=== PATIENT | female | born 1955 | race Caucasian/White ===

== ENCOUNTER 2025-03-11 09:12 | Inpatient (IN) | payer MEDICARE, MEDICAID, SELFPAY ==
[2025-03-11] VITALS (12 sets, daily range): BP systolic 69–185; BP diastolic 32–81; PULSE 71–130; RESP 12–18; TEMP 36.3–36.4; O2SAT 92–100; BMI 26.3
--- NOTE | ~2025-03-11 | CT_ITS ---
CLINICAL HISTORY: fall, head strike CT head without contrast Comparison: None provided Findings: Mild bilateral periventricular hypodensities are present. Remote lacunar infarct is seen in the right basal ganglia. There is no evidence of hemorrhage, mass, mass effect, or hydrocephalus. The visualized paranasal sinuses and mastoid air cells are normal. The orbits are within normal limits. There is no acute fracture. IMPRESSION: 1. No acute intracranial findings. 2. Mild chronic microvascular ischemic disease. This document has been electronically signed by: Finn Kinney on 03/11/2025 11:48:09
--- NOTE | ~2025-03-11 | XR_ITS ---
CLINICAL HISTORY: cough, difficulty breathing 1 view chest x-ray Comparison: None provided Findings: The lungs are clear. Heart size is normal. No acute fracture. IMPRESSION: No acute cardiopulmonary abnormality. This document has been electronically signed by: Finn Kinney on 03/11/2025 10:26:40
--- NOTE | ~2025-03-11 | CT_ITS ---
CLINICAL HISTORY: SOB, syncope, concern for DVT CT ANGIOGRAPHY CHEST WITH CONTRAST. 3D POSTPROCESSING. Comparison: None provided Findings: The heart is normal size. RV/LV ratio is normal. No thoracic aortic aneurysm or dissection. No pulmonary artery filling defects. Nonspecific diffuse wall thickening in the esophagus. No thyromegaly or lymphadenopathy. Tiny right pleural effusion with adjacent atelectasis. No consolidation, pulmonary mass or suspicious pulmonary nodule. No pneumothorax. Cholecystectomy. There is a 2.7 x 3.3 cm left adrenal mass. Mild superior endplate compression deformity in T6 with no significant bony retropulsion. IMPRESSION: 1. No pulmonary embolus. 2. Tiny right pleural effusion with adjacent atelectasis. 3. Diffuse wall thickening in the esophagus is nonspecific but can be seen with esophagitis. 4. 3.3 cm left adrenal mass is technically indeterminate. 5. Age-indeterminate mild T6 compression fracture with overall chronic appearance. This document has been electronically signed by: Jessica Johnson DO on 03/11/2025 14:06:07
--- NOTE | ~2025-03-11 | CT_ITS ---
CLINICAL HISTORY: fall, head strike CT cervical spine without contrast Comparison: None provided Findings: Mild multilevel marginal osteophyte formation is present. Multilevel facet arthropathy is also noted. Vertebral body heights are well-maintained. No acute fracture or subluxation is identified. There is straightening of the cervical spine. There is no canal stenosis. The thyroid gland appears normal. The lung apices are clear. IMPRESSION: 1. No acute osseous abnormality is identified. 2. Mild degenerative changes in the cervical spine. This document has been electronically signed by: Finn Kinney on 03/11/2025 11:54:47
--- NOTE | 2025-03-11 09:15 | ED_ITS ---
HPI - General Adult General Chief complaint: Fall Stated complaint: FALL IN SHOWER Time Seen by Provider: 03/11/25 09:15 Source: patient and EMS Mode of arrival: EMS Limitations: altered mental status (patient only alert to herself) History of Present Illness ED Provider: Lary Stauffer PA-C HPI narrative: Patient is a 69 year old assigned female at with a history of schizoaffective disorder, mild neuorcognitive disorder with behavioral disturbance, PTSD, lumbar degenerative disc disease, lymphedema, DM, bipolar disorder, delusional disorder, borderline personality disorder, RLS, HTN, asthma, GERD, amnesia, and failure to thrive presenting to the emergency department today after a fall. EMS states that the patient told them she was having some trouble breathing but has no complaints otherwise however, she is only oriented to herself. [facility] staff states that the patient fell in the shower and struck her head. Note: I spoke with the patient's guardian who verbalized agreement with treatment of the patient and hospital admission if required. Related Data Home Medications ?Medication ?Instructions ?Recorded ?Confirmed acetaminophen 325 mg tablet 650 mg PO Q6H PRN PAIN/TEM P>101 03/11/25 03/11/25 atorvastatin 40 mg tablet 40 mg PO BEDTIME 03/11/25 Allergies Allergy/AdvReac Type Severity Reaction Status Date / Time Unable to Assess Allergy Verified 03/11/25 09:27 Review of Systems 2 Review of Systems: Yes Unobtainable due to mental status (patient only oriented to herself) Constitutional: Constitutional: Reports as per HPI Eyes: Eyes: Reports as per HPI ENT: Reports as per HPI Cardiovascular: Cardiovascular: Reports as per HPI Respiratory: Respiratory: Reports as per HPI Gastrointestinal: Gastrointestinal: Reports as per HPI Genitourinary: Genitourinary: Reports as per HPI Musculoskeletal: Musculoskeletal: Reports as per HPI Integumentary/Breasts: Skin/Breast: Reports as per HPI Neurologic: Reports as per HPI Psychiatric: Psychiatric: Reports as per HPI Endocrine: Endocrine: Reports as per HPI Hematologic/Lymphatic: Hematologic/Lymphatic: Reports as per HPI Allergic/Immunologic: Allergic/Immunologic: Reports as per HPI [facility] Past Medical History Attestation statement: The following information was validated with the patient. Source: old records reviewed, nursing notes reviewed and other ([facility] documentation) Social History Social History Unable to assess alcohol history related to: Unknown Use of substances other than those prescribed or required for medical reasons: Unable to respond Advance Directives: Yes Advance Directives Information Provided: No Advance Directives on File: No Physical Exam ED Vital Signs: Vital Signs - 24 hr 03/11/25 09:27 03/11/25 10:16 03/11/25 10:32 Temperature 97.5 F Pulse Rate 93 72 77 Respiratory Rate 17 14 12 Blood Pressure 69/32 L 106/36 L 130/46 L Pulse Oximetry 95 95 92 Oxygen Delivery Method Room Air Room Air Oxygen Flow Rate 03/11/25 11:07 03/11/25 11:57 03/11/25 13:36 Temperature 97.4 F Pulse Rate 73 75 73 Respiratory Rate 13 12 14 Blood Pressure 148/56 H 177/74 H 185/80 H Pulse Oximetry 98 100 100 Oxygen Delivery Method Room Air Nasal Cannula Nasal Cannula Oxygen Flow Rate 2 3 03/11/25 14:00 Temperature Pulse Rate 82 Respiratory Rate 12 Blood Pressure 185/81 H Pulse Oximetry 100 Oxygen Delivery Method Nasal Cannula Oxygen Flow Rate 3 BMI result Body Mass Index 26.3 Const General: cooperative, alert and awake Nutritional Appearance: well nourished Orientation/consciousness: oriented to person Limitations: altered mental status HENMT Other: small abrasion to the posterior scalp - no gaping areas or active bleeding Ears: hearing grossly normal bilaterally and external ears normal General nose exam: Normal external nose present, no nasal discharge noted and no epistaxis Face and sinus: Yes normal facial exam, No abrasion and No laceration Mouth: Normal oral and palatal mucosa present, no drooling and no muffled voice Eyes General: appearance normal, both eyes and all related structures Periorbital: periorbital findings normal Eyelids: Yes eyelids normal Conjunctivae: conjunctivae normal Pupils: Equal, round and reactive pupils present EOM: EOMs intact bilaterally Neck Neck: Yes normal visual inspection and Yes full ROM Resp Effort & Inspection: normal respiratory effort and able to speak in complete sentences Neuro General: oriented to person, moves all extremities and CN's II-XI intact bilaterally Cranial nerves: Yes Equal, round and reactive pupils present Extrem General: Yes normal to inspection, Yes full ROM and Yes capillary refill normal Psych Appearance: grossly normal Mental Status: mental status grossly normal Medications Administered Discontinued Medications Generic Name Dose Route Start Last Admin Trade Name Juan Carlos PRN Reason Stop Dose Admin Lactated Ringer's 1,000 mls @ 999 mls/hr 03/11/25 10:00 03/11/25 11:10 Lr IV 03/11/25 11:00 Infused .Q1H1M JACQUI Infusion Lactated Ringer's 1,000 mls @ 999 mls/hr 03/11/25 10:00 03/11/25 11:20 Lr IV 03/11/25 11:00 Infused .Q1H1M JACQUI Infusion Iohexol 100 ml 03/11/25 12:04 03/11/25 12:05 Iohexol 350 Mg/Ml 100 Ml Infus..Btl IV 03/11/25 12:05 65 ml ONCE ONE Administration Procedures Ultrasound ED POC Ultrasound: Ultrasound was performed for hypotensive patient Views were parasternal long, parasternal short, 4 chamber and subxiphoid views There was no pericardial effusion, no RV strain, she has good cardiac squeeze IVC was fully collapsed, impression is hypovolemia without pericardial effusion or RV strain Performed by Konrad Lucero Medical Decision Making Medical Decision Making MDM Narrative: Patient is a 69 year old assigned female at with a history of schizoaffective disorder, mild neuorcognitive disorder with behavioral disturbance, PTSD, lumbar degenerative disc disease, lymphedema, DM, bipolar disorder, delusional disorder, borderline personality disorder, RLS, HTN, asthma, GERD, amnesia, and failure to thrive presenting to the emergency department today after a fall. Patient's physical exam was as noted in the physical exam portion of this note. Patient oriented to herself and answers some questions appropriately. Patient's blood work showed an elevated CR consistent with an SARIAH. Patient's chest x-ray showed no acute process. Patient's CT head and c-spine showed no acute process. Patient was profoundly hypotensive when she arrived in the department. Bed side echocardiogram performed by my attending physician, Dr. Arenas, who noted a very flat IVC. Patient was given 2 liters of LR and her blood pressure normalized. Patient was mentating per her baseline throughout her episode of hypotension. Patient did become hypoxic at some point during her time in the emergency department, requiring oxygen via nasal cannula. Patient's CT PE study was negative. I spoke with the hospitalist team who agreed to admission for SARIAH and hypoixa. Patient's clinical presentation is NOT consistent with sepsis (@1500). I explained my physical exam findings as well as all test results to the patient. I answered all questions asked by the patient. Patient admitted. Differential Diagnosis Differential Diagnoses: The differential diagnosis associated with the presentation includes Hypoxia Hypotension Dehydration SARIAH Syncope Fall Admission/Observation Consideration of admission/observation: Escalation of care including admission/observation considered Patient admitted as noted in the MDM Rationale portion of this note. Consult Healthcare Provider Management of the patient was discussed with: Hospitalist (agreed to admission as noted in the MDM Rationale portion of this note. ) Lab Data [facility] Lab Attestation statement: I reviewed the patient's lab results. My interpretation of these results are in the MDM Rationale portion of this note. 03/11/25 09:51 03/11/25 09:51 Labs: Lab Results 03/11/25 03/11/25 Range/Units 09:51 14:05 WBC 9.8 (4.8-10.8) X10*3/uL RBC 4.77 (4.20-5.50) X10*6/uL Hgb 13.5 (12.0-16.0) g/dl Hct 41.9 (37.0-47.0) % MCV 87.8 (80.0-98.0) fL MCH 28.3 (27.0-33.0) pg MCHC 32.2 (31.0-35.0) g/dl RDW 13.0 (11.0-16.0) % Plt Count 281 (160-400) X10*3/uL MPV 10.0 (9.4-12.3) fL Immature Gran % (Auto) 0.4 (0.0-0.4) % Neut % (Auto) 73.3 H (45-73) % Lymph % (Auto) 19.7 L (20-40) % [place] % (Auto) 5.1 (2-11) % Eos % (Auto) 0.9 (0-4) % Baso % (Auto) 0.6 (0-2) % Lymph # (Auto) 1.9 (1.2-4.9) X10*3/uL [place] # (Auto) 0.5 (0.1-1.2) X10*3/uL Eos # (Auto) 0.1 (0.0-0.4) X10*3/uL Baso # (Auto) 0.1 (0.0-0.2) X10*3/uL Abs Immat Gran (auto) 0.04 H (0.00-0.03) X10*3/uL Absolute Neuts (auto) 7.2 (2.0-8.3) x10*3/uL Absolute Nucleated RBC 0.000 (0.0-0.012) X10*3/uL Nucleated RBC % (auto) 0.0 (0.0-0.2) /100WBC VBG pH 7.39 (7.32-7.43) VBG pCO2 45 mmHg VBG pO2 68 mmHg VBG HCO3 27 H (22-26) mmol/L VBG O2 Saturation 92.0 % VBG Base Excess 2.0 mmol/L Sodium 145 (135-145) mmol/L Potassium 3.8 (3.3-5.1) mmol/L Chloride 104 (96-108) mmol/L Carbon Dioxide 19 L (22-29) mmol/L Anion Gap 26 H (12-20) BUN 27 H (9-16) mg/dL Creatinine 1.83 H (0.5-1.4) mg/dL Estim Creat Clear Calc 28.1 Estimated GFR 27 Random Glucose 189 H (60-115) mg/dL Calcium 9.4 (8.4-10.2) mg/dL Total Bilirubin 0.7 (0.0-1.0) mg/dL AST 23 (5-31) U/L ALT < 6 (0-31) U/L Alkaline Phosphatase 111 (39-117) U/L B-Natriuretic Peptide 23 (<100) pg/mL Total Protein 6.8 (6.5-8.0) g/dL Albumin 3.9 (3.5-5.0) g/dL Independent Interpretation I performed an independent interpretation of an: Plain X-Ray and CT Scan Interpretation: My interpretation is in agreement with the radiologist's impression of these imaging studies. L CLINICAL HISTORY: cough, difficulty breathing 1 view chest x-ray Comparison: None provided Findings: The lungs are clear. Heart size is normal. No acute fracture. IMPRESSION: No acute cardiopulmonary abnormality. This document has been electronically signed by: Finn Kinney on 03/11/2025 10:26:40 Dictated By: Finn Kinney MD Signed By: Electronically signed by Finn Kinney MD 03/11/25 1028 Report Number: [id number]: Total DLP = 0.00 mGy-cm CLINICAL HISTORY: fall, head strike CT head without contrast Comparison: None provided Findings: Mild bilateral periventricular hypodensities are present. Remote lacunar infarct is seen in the right basal ganglia. There is no evidence of hemorrhage, mass, mass effect, or hydrocephalus. The visualized paranasal sinuses and mastoid air cells are normal. The orbits are within normal limits. There is no acute fracture. IMPRESSION: 1. No acute intracranial findings. 2. Mild chronic microvascular ischemic disease. This document has been electronically signed by: Finn Kinney on 03/11/2025 11:48:09 Dictated By: Finn Kinney MD Signed By: Electronically signed by Finn Kinney MD 03/11/25 1148 Report Number: [id number]: Total DLP = 1055.00 mGy-cm CLINICAL HISTORY: fall, head strike CT cervical spine without contrast Comparison: None provided Findings: Mild multilevel marginal osteophyte formation is present. Multilevel facet arthropathy is also noted. Vertebral body heights are well-maintained. No acute fracture or subluxation is identified. There is straightening of the cervical spine. There is no canal stenosis. The thyroid gland appears normal. The lung apices are clear. IMPRESSION: 1. No acute osseous abnormality is identified. 2. Mild degenerative changes in the cervical spine. This document has been electronically signed by: Finn Kinney on 03/11/2025 11:54:47 Dictated By: Finn Kinney MD Signed By: Electronically signed by Finn Kinney MD 03/11/25 1156 Report Number: [id number]: Total DLP = 313.00 mGy-cm CLINICAL HISTORY: SOB, syncope, concern for DVT CT ANGIOGRAPHY CHEST WITH CONTRAST. 3D POSTPROCESSING. Comparison: None provided Findings: The heart is normal size. RV/LV ratio is normal. No thoracic aortic aneurysm or dissection. No pulmonary artery filling defects. Nonspecific diffuse wall thickening in the esophagus. No thyromegaly or lymphadenopathy. Tiny right pleural effusion with adjacent atelectasis. No consolidation, pulmonary mass or suspicious pulmonary nodule. No pneumothorax. Cholecystectomy. There is a 2.7 x 3.3 cm left adrenal mass. Mild superior endplate compression deformity in T6 with no significant bony retropulsion. IMPRESSION: 1. No pulmonary embolus. 2. Tiny right pleural effusion with adjacent atelectasis. 3. Diffuse wall thickening in the esophagus is nonspecific but can be seen with esophagitis. 4. 3.3 cm left adrenal mass is technically indeterminate. 5. Age-indeterminate mild T6 compression fracture with overall chronic appearance. This document has been electronically signed by: Jessica Johnson DO on 03/11/2025 14:06:07 Dictated By: Jessica Johnson MD Signed By: Electronically signed by Jessica Johnson MD 03/11/25 1406 Radiology Impression Discussion of test interpretation with radiology: I have reviewed the radiologist's reading. Independent Historian Clinical information obtained from an independent historian. History obtained from or confirmed by: EMS (EMS provided additional history) and Other ([facility] provided additional history.) Critical Care Time Critical Care Time Critical Care Time: Yes Total Critical Care Time: 51 Attestation: I spent 51 minutes of Critical Care Time with this patient. This does not include time spent on separately reported billable procedures. Discharge Plan Discharge Clinical Impression: Hypoxia, Syncope, SARIAH (acute kidney injury) Patient Disposition: Admitted As Inpatient
[2025-03-11 09:56] LABS: MANUAL DIFF FLAG NO
[2025-03-11 09:59] LABS: Hematocrit 41.9 % (37.0-47.0); Hemoglobin 13.5 g/dl (12.0-16.0); Imm Gran Abs Auto 0.04 X10*3/uL (0.00-0.03); Imm Gran Pct Auto 0.4 % (0.0-0.4); Lymphocytes Absolute Auto 1.9 X10*3/uL (1.2-4.9); Mean Corpuscular HGB Conc 32.2 g/dl (31.0-35.0); Mean Corpuscular Hemoglobin 28.3 pg (27.0-33.0); Mean Corpuscular Volume 87.8 fL (80.0-98.0); NRBC Abs Auto 0.000 X10*3/uL (0.0-0.012); NRBC Pct Auto 0.0 /100WBC (0.0-0.2); Platelet Count 281 X10*3/uL (160-400); Red Blood Count 4.77 X10*6/uL (4.20-5.50); White Blood Count 9.8 X10*3/uL (4.8-10.8)
[2025-03-11] MEDS: Lactated Ringers 1,000 ML 999 ML IV ×2 (10:05)
--- OUTSIDE RECORDS SUMMARY | 2025-03-11 10:16 | XMS_ITS | Encounter Summary ---
Author Organization [employer] [facility] Address [address] [place] [address] Care Team Providers Care Schedule Announcer Name Role Phone Delfino Chaudhari MD Primary Care Provider [phone] Encounter Details Date Type Department Care Team (Late st Contact Info) Description 03/08/2025 Lab Requisition [facility] - Main Lab [address] [place] [address] Deflino Chaudhari MD [address] [place] [address] [address] [place] Other continuous churn buttermaker (current) drug therapy; Encounter for other specified special examinations; Other hyperlipidemia Social History Tobacco Use Types Packs/Day Years Used Date Smoking Tobacco: Never Assessed Comments Unknown Sex and Gender Information Value Date Recorded Sex Assigned at Not on file Legal Sex Female 3:40 PM EDT Gender Identity Not on file Sexual Orientation Not on file documented as of this encounter Plan of Treatment Not on file documented as of this encounter Procedures Procedure Name Priority Date/Time Associated Diagnosis Comments LIPID PANEL WITH REFLEX TO DIRECT LDL Routine 03/08/2025 6:58 AM EDT Other continuous churn buttermaker (current) drug therapy Encounter for other specified special examinations Other hyperlipidemia CBC WITH AUTO DIFFERENTIAL Routine 03/08/2025 6:58 AM EDT Other care home (current) drug therapy Encounter for other specified special examinations Other hyperlipidemia CBC AND DIFFERENTIAL Routine 03/08/2025 6:58 AM EDT Other care home (current) drug therapy Encounter for other specified special examinations Other hyperlipidemia THYROID STIMULATING HORMONE Routine 03/08/2025 6:58 AM EDT Other care home (current) drug therapy Encounter for other specified special examinations Other hyperlipidemia COMPREHENSIVE METABOLIC PANEL Routine 03/08/2025 6:58 AM EDT Other care home (current) drug therapy Encounter for other specified special examinations Other hyperlipidemia documented in this encounter Results * (ABNORMAL) CBC auto differential (03/08/2025 6:58 AM EDT) WBC 5.7 4.8 - 10.8 K/mcL LAB HEMETOLOGY METHOD 03/08/2025 8:03 AM [facility] RBC 4.40 3.80 - 4.80 M/mcL LAB HEMETOLOGY METHOD 03/08/2025 8:03 AM [facility] Hemoglobin 12.1 11.5 - 16.0 g/dL LAB HEMETOLOGY METHOD 03/08/2025 8:03 AM [facility] Hematocrit 38.1 35.0 - 47.0 % LAB HEMETOLOGY METHOD 03/08/2025 8:03 AM [facility] MCV 87.6 79.0 - 98.0 FL LAB HEMETOLOGY METHOD 03/08/2025 8:03 AM [facility] MCH 27.8 27.0 - 32.0 pcg LAB HEMETOLOGY METHOD 03/08/2025 8:03 AM [facility] MCHC 31.8(L) 32.0 - 37.0 g/dL LAB HEMETOLOGY METHOD 03/08/2025 8:03 AM [facility] RDW 12.8 11.0 - 15.0 % LAB HEMETOLOGY METHOD 03/08/2025 8:03 AM [facility] Platelets 241 130 - 400 K/mcL LAB HEMETOLOGY METHOD 03/08/2025 8:03 AM [facility] MPV 10.6 7.0 - 11.0 FL LAB HEMETOLOGY METHOD 03/08/2025 8:03 AM [facility] NRBC 0.0 <1.0 % LAB HEMETOLOGY METHOD 03/08/2025 8:03 AM [facility] NRBC Absolute 0.00 <0.10 K/mcL LAB HEMETOLOGY METHOD 03/08/2025 8:03 AM [facility] Neutrophils Relative 51.6 % LAB HEMETOLOGY METHOD 03/08/2025 8:03 AM [facility] Lymphocytes Relative 38.6 % LAB HEMETOLOGY METHOD 03/08/2025 8:03 AM [facility] Monocytes Relative 7.2 % LAB HEMETOLOGY METHOD 03/08/2025 8:03 AM [facility] Eosinophils Relative 1.4 % LAB HEMETOLOGY METHOD 03/08/2025 8:03 AM [facility] Basophils Relative 0.9 % LAB HEMETOLOGY METHOD 03/08/2025 8:03 AM [facility] Immature Granulocytes Relative 0.3 % LAB HEMETOLOGY METHOD 03/08/2025 8:03 AM [facility] Neutrophils Absolute 2.96 1.50 - 7.00 K/mcL LAB HEMETOLOGY METHOD 03/08/2025 8:03 AM [facility] Lymphocytes Absolute 2.21 1.00 - 5.00 K/mcL LAB HEMETOLOGY METHOD 03/08/2025 8:03 AM [facility] Monocytes Absolute 0.41 0.20 - 1.00 K/mcL LAB HEMETOLOGY METHOD 03/08/2025 8:03 AM [facility] Eosinophils Absolute 0.08 0.00 - 0.50 K/mcL LAB HEMETOLOGY METHOD 03/08/2025 8:03 AM [facility] Basophils Absolute 0.05 0.00 - 0.20 K/mcL LAB HEMETOLOGY METHOD 03/08/2025 8:03 AM [facility] Immature Granulocytes Absolute 0.02 0.00 - 0.03 K/mcL LAB HEMETOLOGY METHOD 03/08/2025 8:03 AM EDT [facility] Blood Venous blood specimen / Unknown 03/08/2025 6:58 AM EDT 03/08/2025 7:33 AM EDT us Delfino Chaudhari MD LAB BLOOD ORDERABLES Final Resul t Performing Organization Address City/[facility]/ZIP Co de Phone Number [facility] [address] [place] [address], [place] [phone] * Thyroid stimulating hormone (03/08/2025 6:58 AM EDT) [facility] TSH 1.57 0.40 - 4.00 mcIU/mL LAB CHEMISTRY METHOD 03/08/2025 11:24 AM EDT [facility] Blood Venous blood specimen / Unknown 03/08/2025 6:58 AM EDT 03/08/2025 7:33 AM EDT us Delfino Chaudhari MD LAB BLOOD ORDERABLES Final Resul t Performing Organization Address [facility] Co de Phone Number [facility] [address] [place] [address], [place] [phone] * Lipid panel with reflex to direct LDL (03/08/2025 6:58 AM EDT) [facility] Cholesterol 163 0 - 200 mg/dL LAB CHEMISTRY METHOD 03/08/2025 8:21 AM EDT [facility] Triglycerides 59 0 - 150 mg/dL LAB CHEMISTRY METHOD 03/08/2025 8:21 AM EDT [facility] HDL 71 >=40 mg/dL LAB CHEMISTRY METHOD 03/08/2025 8:21 AM EDT [facility] LDL Calculated 80 0 - 100 mg/dL LAB CHEMISTRY METHOD 03/08/2025 8:21 AM EDT [facility] Comment:Estimated LDL Calcul ated using equation: Total cholesterol - HDL cholesterol - (Triglycerides/5) VLDL Cholesterol Anmol 11.8 mg/dL LAB CHEMISTRY METHOD 03/08/2025 8:21 AM T [facility] Non HDL Chol. (LDL+VLDL) 92 <145 mg/dL LAB CHEMISTRY METHOD 03/08/2025 8:21 AM [facility] Chol/HDL Ratio 2.3 0.0 - 4.4 LAB CHEMISTRY METHOD 03/08/2025 8:21 AM T [facility] Blood Venous blood specimen / Unknown 03/08/2025 6:58 AM EDT 03/08/2025 7:33 AM EDT us Delfino Chaudhari MD LAB BLOOD ORDERABLES Final Resul t [facility] [address] [place] [address], [place] [phone] * (ABNORMAL) Comprehensive metabolic panel (03/08/2025 6:58 AM EDT) Sodium 141 133 - 145 mmol/L LAB CHEMISTRY METHOD 03/08/2025 8:21 AM [facility] Potassium 3.8 3.5 - 5.5 mmol/L LAB CHEMISTRY METHOD 03/08/2025 8:21 AM [facility] Chloride 109 96 - 110 mmol/L LAB CHEMISTRY METHOD 03/08/2025 8:21 AM [facility] CO2 25 21 - 32 mmol/L LAB CHEMISTRY METHOD 03/08/2025 8:21 AM [facility] Anion Gap 7 3 - 11 LAB CHEMISTRY METHOD 03/08/2025 8:21 AM [facility] Glucose 86 70 - 100 mg/dL LAB CHEMISTRY METHOD 03/08/2025 8:21 AM [facility] BUN 23 5 - 25 mg/dL LAB CHEMISTRY METHOD 03/08/2025 8:21 AM [facility] Creatinine 1.12(H) 0.50 - 1.10 mg/dL LAB CHEMISTRY METHOD 03/08/2025 8:21 AM [facility] eGFR 54(L) >=60 mL/min/1. 73m2 LAB CHEMISTRY METHOD 03/08/2025 8:21 AM [facility] Comment:Calculation based on the Chronic Kidney Disease Epidemiology Collaboration (CKD-EPI) equation refit without adjustment for race. BUN/Creatinine Ratio 20.5 LAB CHEMISTRY METHOD 03/08/2025 8:21 AM [facility] Calcium 8.6 8.5 - 10.5 mg/dL LAB CHEMISTRY METHOD 03/08/2025 8:21 AM [facility] AST (SGOT) 18 10 - 42 unit/L LAB CHEMISTRY METHOD 03/08/2025 8:21 AM [facility] ALT (SGPT) 13 10 - 60 unit/L LAB CHEMISTRY METHOD 03/08/2025 8:21 AM [facility] Alkaline Phosphatase 102 42 - 121 unit/L LAB CHEMISTRY METHOD 03/08/2025 8:21 AM [facility] Total Protein 6.0 6.0 - 8.0 g/dL LAB CHEMISTRY METHOD 03/08/2025 8:21 AM [facility] Albumin 3.1(L) 3.2 - 5.0 g/dL LAB CHEMISTRY METHOD 03/08/2025 8:21 AM [facility] Total Bilirubin 0.3 0.0 - 1.4 mg/dL LAB CHEMISTRY METHOD 03/08/2025 8:21 AM [facility] Blood Venous blood specimen / Unknown 03/08/2025 6:58 AM EDT 03/08/2025 7:33 AM EDT us Delfino Chaudhari MD LAB BLOOD ORDERABLES Final Resul t [facility] [address] [place] [address], documented in this encounter Visit Diagnoses Diagnosis Other care home (current) drug therapy Encounter for other specified special examinations Other hyperlipidemia documented in this encounter Care Teams Schedule Announcer Relationship Specialty Start Date End Date Delfino Chaudhari MD [address] [place], [place] PCP - General Internal Medicine 06/07/24 documented as of this encounter
--- NOTE | 2025-03-11 10:20 | PC.NURSE ---
Patient is a 69 year old female at with a history of schizoaffective disorder, mild neuorcognitive disorder with behavioral disturbance, PTSD, lumbar degenerative disc disease, lymphedema, DM, bipolar disorder, delusional disorder, borderline personality disorder, RLS, HTN, asthma, GERD, amnesia, and failure to thrive presenting to the emergency department today after a fall x 2..She is only oriented to herself. [facility] staff states that the patient fell in the shower and struck her head. Upon arrival, patent cool and clammy and noted to be profoundly hypotensive. PIV access obtained and fluids initiated. Bedside U/S performed and compressed IVC noted. air sampling and monitoring shows NSR. Lungs essenitally clear. Respirations even and non-labored. Abdomen soft, non-tender with positive bowel sounds. LE edema noted.
[2025-03-11 10:23] LABS: Alanine Aminotransferase < 6 U/L (0-31); Albumin Level 3.9 g/dL (3.5-5.0); Alkaline Phosphatase 111 U/L (39-117); Anion Gap 26 (12-20); Aspartate Amino Transferase 23 U/L (5-31); Blood Urea Nitrogen 27 mg/dL (9-16); Calcium 9.4 mg/dL (8.4-10.2); Carbon Dioxide 19 mmol/L (22-29); Chloride 104 mmol/L (96-108); Creatinine Clr Calc Pharmacy 28.1; Estimated Glomerular Filt Rate 27; Potassium 3.8 mmol/L (3.3-5.1); Sodium 145 mmol/L (135-145); Total Protein 6.8 g/dL (6.5-8.0)
[2025-03-11 10:31] LABS: B Type Natriuretic Peptide 23 pg/mL (<100)
--- NOTE | 2025-03-11 12:00 | PC.NURSE ---
POX noted to be 88-90% on room air. Provider notified and patient placed on 3L via NC with good effect.
[2025-03-11] MEDS: iohexoL 350 MG/ML 100 ML INFUS..BTL IV (12:05)
[2025-03-11 14:10] LABS: Venous Blood Gas Refer to POC result
[2025-03-11 14:11] LABS: VBG HCO3 27 mmol/L (22-26); VBG O2 % Saturation 92.0 %
--- NOTE | 2025-03-11 14:16 | PC.NURSE ---
Patient incontinent of a large amount of urine. Incontinence care and bed change provided.
--- NOTE | 2025-03-11 14:31 | PM.IMHP ---
History of Present Illness Date of Service: 03/11/25 <Alyssia Alberto NP - Last Filed: 03/11/25 16:51> Chief Complaint: Fall <Alyssia Alberto NP - Last Filed: 03/11/25 16:51> 69 [facility] women [facility] presenting after a fall. She stated that she fell out of bed and also fell from the toilet. She denied LOC. The facility stated that she fell in the shower and and struck her head. EMS states that the patient told them she was having some trouble breathing but has no complaints otherwise however, she is only oriented to herself. all imaging studies are normal. Labs wnl although her creat is up with unknown baseline. She presented hypotensive and was giving 2 liters of IV fluids. Her BP went up to 190 SBP. She received a dose of hydralazine. Creat elevated at 1.83 but unknown baseline. Plan is to admit for management of fall and hypotension <Alyssia Alberto NP - Last Filed: 03/11/25 16:51> Review of Systems Review of Systems: Denies any recent fever chills or decrease in appetite respiratory denies any shortness of breath or cough cardiovascular denied chest pain gastrointestinal denies any dysphagia abdominal pain nausea vomiting or diarrhea genitourinary denies any dysuria frequency or hematuria musculoskeletal denies any joint pain or swelling neuropsych denies any weakness or seizures all other systems reviewed are negative <Alyssia Alberto NP - Last Filed: 03/11/25 16:51> [facility] Social History: Social History Unable to assess alcohol history related to: Unknown Patient Tobacco Use Status: Never used Tobacco Use of substances other than those prescribed or required for medical reasons: Unable to respond Advance Directives: Yes Advance Directives Information Provided: No Advance Directives on File: No Nutrition Risks: No Nutritional Risk <Alyssia Alberto NP - Last Filed: 03/11/25 16:51> Meds Allergies/Adverse reactions: Allergies Allergy/AdvReac Type Severity Reaction Status Date / Time aspirin Allergy Unknown Verified 03/11/25 19:15 chlorpromazine Allergy Unknown Verified 03/11/25 19:15 diclofenac Allergy Unknown Verified 03/11/25 19:15 duloxetine Allergy Unknown Verified 03/11/25 19:15 pregabalin (From Lyrica) Allergy Unknown Verified 03/11/25 19:15 thioridazine Allergy Unknown Verified 03/11/25 19:15 tolterodine Allergy Unknown Verified 03/11/25 19:15 tramadol Allergy Unknown Verified 03/11/25 19:15 tuberculin,PPD,multi-puncture Allergy Unknown Verified 03/11/25 19:15 <Alyssia Alberto NP - Last Filed: 03/11/25 16:51> Home medications: Home Medications ?Medication ?Instructions ?Recorded ?Confirmed ?Last Taken ?Type acetaminophen 325 mg tablet 650 mg PO Q6H PRN PAIN/TEMP>101 03/11/25 03/11/25 Unknown History atorvastatin 40 mg tablet 40 mg PO BEDTIME 03/11/25 03/11/25 03/10/25 19:55 History benztropine 1 mg tablet 1 mg PO BID 03/11/25 03/11/25 03/11/25 08:30 History bisacodyl 10 mg rectal suppository 10 mg NM DAILY PRN CONSTIPATION IF 03/11/25 03/11/25 Unknown History SENNA INEFFECTIVE diazepam 2 mg tablet 1 mg PO BID 03/11/25 03/11/25 03/11/25 08:30 History gabapentin 300 mg capsule 900 mg PO BEDTIME 03/11/25 03/11/25 03/10/25 19:55 History glucagon 1 mg solution for 1 mg IM Q15M PRN Hypoglycemia 03/11/25 03/11/25 Unknown History injection haloperidol 2 mg tablet 2 mg PO BID 03/11/25 03/11/25 03/11/25 08:30 History hydrochlorothiazide 12.5 mg tablet 12.5 mg PO DAILY 03/11/25 03/11/25 03/11/25 08:30 History ketoconazole 2 % shampoo 1 appl topical TUTHSA 03/11/25 03/11/25 03/09/25 16:50 History lamotrigine 200 mg tablet 200 mg PO DAILY 03/11/25 03/11/25 03/11/25 08:30 History (Lamictal) mirtazapine 30 mg disintegrating 30 mg PO BEDTIME 03/11/25 03/11/25 03/10/25 19:55 History tablet (Remeron SolTab) pimavanserin 34 mg capsule 34 mg PO DAILY 03/11/25 03/11/25 03/11/25 08:30 History (Nuplazid) risperidone 3 mg tablet (Risperdal) 3 mg PO DAILY 03/11/25 03/11/25 03/11/25 08:30 History risperidone 3 mg tablet (Risperdal) 6 mg PO BEDTIME 03/11/25 03/11/25 03/10/25 19:55 History sennosides 8.6 mg tablet (senna) 8.6 mg PO DAILY PRN Constipation 03/11/25 03/11/25 Unknown History sodium phosphates 19 gram-7 118 ml NM DAILY PRN CONSTIPATION 03/11/25 03/11/25 Unknown History gram/118 mL enema (Fleet Enema) IF BISACODYL INEFFECTIVE <Alyssia Alberto NP - Last Filed: 03/11/25 16:51> Physical Exam Vital Signs and Narrative: Vital Signs: Last Vital Signs Temp 97.4 F 03/11/25 13:36 Pulse 82 03/11/25 14:00 Resp 12 03/11/25 14:00 BP 185/81 H 03/11/25 14:00 Pulse Ox 100 03/11/25 14:00 O2 Del Method Nasal Cannula 03/11/25 14:00 O2 Flow Rate 3 03/11/25 14:00 BMI result Body Mass Index 26.3 <Alyssia Alberto NP - Last Filed: 03/11/25 16:51> Appearing in no acute distress head is normocephalic atraumatic eyes pupils are PERRLA sclera is anicteric mouth throat mucous membranes are intact and moist neck is supple no lymphadenopathy, no JVD noted lung sounds are clear to auscultation heart regular rate rhythm, clear S1, S2 positive bowel sounds, abdomen is soft, nontender neuro patient is alert to person <Alyssia Alberto NP - Last Filed: 03/11/25 16:51> Results Labs CBC and Chem 7: 03/12/25 05:34 03/12/25 05:34 <Alyssia Alberto NP - Last Filed: 03/11/25 16:51> Labs: Laboratory Results - last 24 hr 03/11/25 03/11/25 09:51 14:05 MCV 87.8 MCH 28.3 MCHC 32.2 RDW 13.0 Plt Count 281 MPV 10.0 Immature Gran % (Auto) 0.4 Neut % (Auto) 73.3 H Lymph % (Auto) 19.7 L [place] % (Auto) 5.1 Eos % (Auto) 0.9 Baso % (Auto) 0.6 Lymph # (Auto) 1.9 [place] # (Auto) 0.5 Eos # (Auto) 0.1 Baso # (Auto) 0.1 Abs Immat Gran (auto) 0.04 H Absolute Neuts (auto) 7.2 Absolute Nucleated RBC 0.000 Nucleated RBC % (auto) 0.0 VBG pH 7.39 VBG pCO2 45 VBG pO2 68 VBG HCO3 27 H VBG O2 Saturation 92.0 VBG Base Excess 2.0 Anion Gap 26 H Estim Creat Clear Calc 28.1 Estimated GFR 27 Random Glucose 189 H Calcium 9.4 Total Bilirubin 0.7 AST 23 ALT < 6 Alkaline Phosphatase 111 B-Natriuretic Peptide 23 Total Protein 6.8 Albumin 3.9 <Alyssia Alberto NP - Last Filed: 03/11/25 16:51> Assessment and Plan (1) SARIAH (acute kidney injury): Status: Acute <Alyssia Alberto NP - Last Filed: 03/11/25 16:51> 69 year old women from [facility] with hx of history of schizoaffective disorder, mild neuorcognitive disorder with behavioral disturbance, PTSD, lumbar degenerative disc disease, lymphedema, DM, bipolar disorder, delusional disorder, borderline personality disorder, RLS, HTN, asthma, GERD, amnesia, and failure tadmitted after a fall, possible syncope and hypotension Hypotension Treated with 2 liters IV fluids in the ED with elevation in BP now hypertensive IV hydralazine 5 mg now SARIAH vs CKD unspecified s/p 2 liters IV fluids in ED recheck in the am and consult nephro if no improvement Fall with possible syncope CT, cervical spine CT and chest x-ray negative for acute abnormality, noted chronic adrenal mass Physical therapy consultation Out of bed to chair with the assistance Mental health continue home medications DVT prophylaxis with Full code <Alyssia Alberto NP - Last Filed: 03/11/25 16:51> Quality Stroke Does the patient have a stroke diagnosis?: No <Lex Morris MD - Last Filed: 03/12/25 07:19> VTE Prior VTE?: No <Lex Morris MD - Last Filed: 03/12/25 07:19> VTE Risk Level:: Medical - moderate - high <Lex Morris MD - Last Filed: 03/12/25 07:19> VTE Device Contraindication: Treatment Not Indicated <Lex Morris MD - Last Filed: 03/12/25 07:19> VTE Drug Contraindication: N/A - Med Ordered <Lex Morris MD - Last Filed: 03/12/25 07:19>
[2025-03-11] MEDS: 0.9 % Sodium Chloride Flush 3 ML SYRINGE IVFLUSH (15:27)
--- NOTE | 2025-03-11 15:54 | PHA.MEDREC ---
Pharmacy Consult ? Medication Reconciliation Pharmacy has completed the medication reconciliation.med rec complete, utilized list from [facility]
--- NOTE | 2025-03-11 16:45 | PC.NURSE ---
Patient incontinent of a large amount of urine. Incontinence care and bed change provided. Purewick applied.
--- NOTE | 2025-03-11 19:15 | PC.NURSE ---
updated allergy list based off [facility] paperwork at bedside
--- NOTE | 2025-03-11 19:59 | PC.NURSE ---
Upon entering room patient has dinner tray at bedside and spaghetti sauce on her face. Pt had requested a wet cloth to wash her face with. Retrieved wet cloth and patient cleaned her face independently. Patient is connect to a Jump or Fallwick. Patient is alert and oriented x 3 stating she is due to leave because tomorrow (Thursday) she has therapy and she cannot miss it. Patient states its march 04 2025. Pt reports living [facility] for the past year, but she came to the ED because she had a fall in the bathroom today. Pt reports falling backwards and hitting the back of her head on the floor. Patient is currently on 3L of oxygen but states she does not use it at home. Wall oxygen was shut off during assessment to see if oxygen is required at this time. Patient stayed stable during entire conversation at 100% without NC. Pt report needing help getting undressed, able to dress and feed self, requires assistance going to the bathroom occasionally. Reports sometimes using a walker at [facility].
[2025-03-11 20:01] LABS: Resp Syncy Virus RNA Qual PCR NEGATIVE (Negative); SARS COV2 PCR INHOUSE NEGATIVE (Negative)
--- NOTE | 2025-03-11 22:01 | PC.NURSE ---
Notifed Hospital MD there was issues regarding prescriptions taken at home and allergy medication requiring an override by the nurse. MD stated they will review medications. Holding medications until discrepancy has been viewed and approved by Dr. Mancia.
[2025-03-12] MEDS: 0.9 % Sodium Chloride Flush 3 ML SYRINGE IVFLUSH ×2 (01:34→07:30)
--- NOTE | 2025-03-12 02:04 | PC.NURSE ---
Patient refuses purewick, stating it is like a colostomy which freaks me out. Patient awake in bed, demanding someone goes to the basement to get a depends for her. Explained to patient the best option for her skin is the purewick, as worry of breakdown that happens in a brief. Patient then stated, I don't care about my skin.
[2025-03-12 04:45] VITALS: BP 129/54; PULSE 70; RESP 16; TEMP 36.9; O2SAT 98
[2025-03-12 05:59] LABS: Hematocrit 40.3 % (37.0-47.0); Hemoglobin 13.4 g/dl (12.0-16.0); Imm Gran Abs Auto 0.02 X10*3/uL (0.00-0.03); Imm Gran Pct Auto 0.3 % (0.0-0.4); Lymphocytes Absolute Auto 1.9 X10*3/uL (1.2-4.9); MANUAL DIFF FLAG SCAN; Mean Corpuscular HGB Conc 33.3 g/dl (31.0-35.0); Mean Corpuscular Hemoglobin 28.4 pg (27.0-33.0); Mean Corpuscular Volume 85.4 fL (80.0-98.0); NRBC Abs Auto 0.000 X10*3/uL (0.0-0.012); NRBC Pct Auto 0.0 /100WBC (0.0-0.2); PLT CLUMP 1; Red Blood Count 4.72 X10*6/uL (4.20-5.50); SCAN SMEAR FLAG 1
[2025-03-12 06:11] LABS: Magnesium 1.7 mg/dL (1.6-2.6)
[2025-03-12 06:13] LABS: Anion Gap 16 (12-20); Blood Urea Nitrogen 25 mg/dL (9-16); Calcium 9.2 mg/dL (8.4-10.2); Carbon Dioxide 26 mmol/L (22-29); Chloride 104 mmol/L (96-108); Creatinine Clr Calc Pharmacy 39.9; Estimated Glomerular Filt Rate 41; Potassium 3.5 mmol/L (3.3-5.1); Sodium 142 mmol/L (135-145)
[2025-03-12 06:16] LABS: Platelet Count 201 X10*3/uL (160-400); White Blood Count 7.4 X10*3/uL (4.8-10.8)
--- NOTE | 2025-03-12 07:15 | PC.NURSE ---
assumed care of pt at 0645. a&ox3. unable to recall location - states that she is at [facility]. pt reoriented to location. otherwise answering questions/following commands appropriately. vss and up to date. nsr on the monitor and storage bin tender. pt turned/repositioned to comfort. sitting upright eating breakfast independently w/o difficulty. pt currently pending bed assignment. on RA w/o difficulty - no sob/wob noted. respirations even/unlabored. plan of care ongoing. call butler placed within reach.
[2025-03-12 07:29] VITALS: BP 115/61; PULSE 80; RESP 15; TEMP 36.8; O2SAT 95
--- NOTE | 2025-03-12 08:26 | P.DS_ITS ---
DS: Providers Provider Date of Service: 03/12/25 Date of admission: 03/11/25 14:31 Date of discharge: 03/12/25 Primary care physician: Delfino Chaudhari DO DS: Diagnosis Discharge Diagnosis (1) SARIAH (acute kidney injury): Status: Acute DS: Summary Hospital Course Hospital Course: History and physical as per admitting provider. Patient is a 69 year old assigned female at with a history of schizoaffective disorder, mild neuorcognitive disorder with behavioral disturbance, PTSD, lumbar degenerative disc disease, lymphedema, DM, bipolar disorder, delusional disorder, borderline personality disorder, RLS, HTN, asthma, GERD, amnesia, and failure to thrive presenting to the emergency department today after a fall. EMS states that the patient told them she was having some trouble breathing but has no complaints otherwise however, she is only oriented to herself. [facility] staff states that the patient fell in the shower and struck her head. Note: I spoke with the patient's guardian who verbalized agreement with treatment of the patient and hospital admission if required. 69-year-old woman treated for fall secondary to hypotension and syncope. Treated with IV fluids then became hypertensive and treated with IV hydralazine. She had imaging which were all negative for any acute fracture dislocation. Has been out of bed ambulating in the hallway with no dizziness or noted orthostatic hypotension. Nothing noted on telemetry. Plan is to discharge patient back to [facility]. SARIAH on CKD unspecified. Received IV fluids in the ER and resolved. Mental health. Continue home medications Time Attestation Discharge Coordination Time (in mins): 42 Quality: Safe Use of Opioids Does Pt have an Active Cancer Diagnosis on the Problem List?: No Quality: Stroke Does the patient have a stroke diagnosis?: No Physical Exam Exam: Exam: Appearing in no acute distress head is normocephalic atraumatic eyes pupils are PERRLA sclera is anicteric mouth throat mucous membranes are intact and moist neck is supple no lymphadenopathy, no JVD noted lung sounds are clear to auscultation heart regular rate rhythm, clear S1, S2 positive bowel sounds, abdomen is soft, nontender neuro patient is alert to self Vital Signs: Vital Signs: Last Vital Signs Temp 98.3 F 03/12/25 07:29 Pulse 80 03/12/25 07:29 Resp 15 03/12/25 07:29 BP 115/61 03/12/25 07:29 Pulse Ox 95 03/12/25 07:29 O2 Del Method Room Air 03/12/25 07:29 O2 Flow Rate 3 03/11/25 15:58 BMI result Body Mass Index 26.3 DS: Data Data Completed and Pending Labs on day of discharge: Laboratory Results - last 24 hr 03/11/25 03/11/25 03/11/25 09:51 14:05 19:13 WBC 9.8 RBC 4.77 Hgb 13.5 Hct 41.9 MCV 87.8 MCH 28.3 MCHC 32.2 RDW 13.0 Plt Count 281 MPV 10.0 Immature Gran % (Auto) 0.4 Neut % (Auto) 73.3 H Lymph % (Auto) 19.7 L [place] % (Auto) 5.1 Eos % (Auto) 0.9 Baso % (Auto) 0.6 Lymph # (Auto) 1.9 [place] # (Auto) 0.5 Eos # (Auto) 0.1 Baso # (Auto) 0.1 Abs Immat Gran (auto) 0.04 H Absolute Neuts (auto) 7.2 Absolute Nucleated RBC 0.000 Nucleated RBC % (auto) 0.0 Smear Tech's Comments VBG pH 7.39 VBG pCO2 45 VBG pO2 68 VBG HCO3 27 H VBG O2 Saturation 92.0 VBG Base Excess 2.0 Sodium 145 Potassium 3.8 Chloride 104 Carbon Dioxide 19 L Anion Gap 26 H BUN 27 H Creatinine 1.83 H Estim Creat Clear Calc 28.1 Estimated GFR 27 Random Glucose 189 H Calcium 9.4 Magnesium Total Bilirubin 0.7 AST 23 ALT < 6 Alkaline Phosphatase 111 B-Natriuretic Peptide 23 Total Protein 6.8 Albumin 3.9 Influenza Type A (PCR) NEGATIVE Influenza Type B (PCR) NEGATIVE RSV RNA Qual (PCR) NEGATIVE SARS-CoV-2 RNA (RT-PCR) NEGATIVE 03/12/25 05:34 WBC 7.4 RBC 4.72 Hgb 13.4 Hct 40.3 MCV 85.4 MCH 28.4 MCHC 33.3 RDW 12.9 Plt Count 201 D MPV 11.3 Immature Gran % (Auto) 0.3 Neut % (Auto) 65.0 Lymph % (Auto) 25.5 [place] % (Auto) 7.3 Eos % (Auto) 1.4 Baso % (Auto) 0.5 Lymph # (Auto) 1.9 [place] # (Auto) 0.5 Eos # (Auto) 0.1 Baso # (Auto) 0.0 Abs Immat Gran (auto) 0.02 Absolute Neuts (auto) 4.8 Absolute Nucleated RBC 0.000 Nucleated RBC % (auto) 0.0 Smear Tech's Comments VERIFIED VBG pH VBG pCO2 VBG pO2 VBG HCO3 VBG O2 Saturation VBG Base Excess Sodium 142 Potassium 3.5 Chloride 104 Carbon Dioxide 26 Anion Gap 16 BUN 25 H Creatinine 1.29 Estim Creat Clear Calc 39.9 Estimated GFR 41 Random Glucose 93 Calcium 9.2 Magnesium 1.7 Total Bilirubin AST ALT Alkaline Phosphatase B-Natriuretic Peptide Total Protein Albumin Influenza Type A (PCR) Influenza Type B (PCR) RSV RNA Qual (PCR) SARS-CoV-2 RNA (RT-PCR) Discharge Plan Discharge Anticipated Discharge Date/Time: 03/12/25 08:23 Patient Disposition: Xfer SNF Discharge Diagnosis: Fall syncope hypotension SARIAH dehydration Referrals: Delfino Chaudhari DO [Primary Care Provider, Internal Medicine] - 1 Week Discharge Medications: Continued acetaminophen 325 mg Tablet 650 mg PO Q6H PRN (Reason: PAIN/TEMP>101) atorvastatin 40 mg Tablet 40 mg PO BEDTIME benztropine 1 mg Tablet 1 mg PO BID bisacodyl 10 mg Suppository 10 mg MI DAILY PRN (Reason: CONSTIPATION IF SENNA INEFFECTIVE) diazepam 2 mg Tablet 1 mg PO BID Fleet Enema 19-7 gram/118 mL Enema 118 ml MI DAILY PRN (Reason: CONSTIPATION IF BISACODYL INEFFECTIVE) glucagon 1 mg Recon Soln 1 mg IM Q15M PRN (Reason: Hypoglycemia) Rx Instructions: MAY REPEAT X 1, IF INEFFECTIVE AFTER RE CHECK, MAX OF 2 DOSES ONLY haloperidol 2 mg Tablet 2 mg PO BID hydrochlorothiazide 12.5 mg Tablet 12.5 mg PO DAILY ketoconazole 2 % Shampoo 1 appl TOPICAL TUTHSA Rx Instructions: APPLY TO SCALP EVERY EVENING SHIFT TUTHSA APPLY TO SCALP, LATHER, AND LEAVE IN 5 TO 10 MIN THEN RINSE lamotrigine [Lamictal] 200 mg Tablet 200 mg PO DAILY gabapentin 300 mg Capsule 900 mg PO BEDTIME Nuplazid 34 mg Capsule 34 mg PO DAILY mirtazapine [Remeron SolTab] 30 mg Tablet,Disintegrating 30 mg PO BEDTIME sennosides [senna] 8.6 mg Tablet 8.6 mg PO DAILY PRN (Reason: Constipation) risperidone [Risperdal] 3 mg Tablet 6 mg PO BEDTIME risperidone [Risperdal] 3 mg Tablet 3 mg PO DAILY Discharge Orders: Discharge Order (Routine); Ordered 03/12/25 Ordered By: Alyssia Alberto Diet: Advance to usual diet Activity on Discharge: As tolerated Stand Alone Forms: Patient Portal Discharge page Print Language: Indonesian Care Plan Goals: Drink plenty of fluids Health Concerns: Fall syncope hypotension SARIAH dehydration Plan of Treatment: Follow up with primary care provider as needed Assessment: See discharge summary Discharge Date/Time: 03/12/25 10:11
--- NOTE | 2025-03-12 08:35 | PC.NURSE ---
ambulation trial performed. 1:1 assist OOB and during ambulation. pt noted to have extremely unsteady gait - unable to stand independently. pt ambulated to restroom, urinated approx. 200ml of clear, pale yellow urine. pt denied any dizziness/lightheadedness/sob during ambulation trial. assisted back into bed/repositioned. provider notified/aware of results. call butler placed within reach.
[2025-03-12 09:22] VITALS: BP 153/68
--- NOTE | 2025-03-12 09:45 | PC.NURSE ---
attempted to call and [facility] at this time. no response. will reattempt.
--- NOTE | 2025-03-12 10:00 | PC.NURSE ---
report given to KIM houser at this time. pt leaving facility/being transferred to [facility].
--- NOTE | 2025-03-12 10:07 | PC.NURSE ---
spoke w/ SANJAY Mcmullen at [facility] at this time. report provided.
--- NOTE | 2025-03-12 10:33 | MHC.CM.PN ---
Addendum entered by Jocy Troncoso 03/12/25 13:28: IT APPEARS ED RN BOOKED TRANSPORT FOR PTS RETURN TO SNF CM STILL AWAITING LIAISON RESPONSE REGARDING HCP Original Note: [facility] [place] RETURN REFERRAL PLACED INFORMING THEM SHE IS CLEARED TO DC AND REQUESTING ANY HCP/GUARDIANSHIP DOCUMENT BE FAXED BLS TRANSPORT WILL BE BOOKED ONCE SNF REPORTS THEY ARE PREPARED FOR HER RETURN
== END 2025-03-12 10:11 | disposition skilled nursing facility (03) | DRG 315 ==
LOC: HO.ED 14:16 → HO.EDOVER 14:41
PROVIDERS: Physician Assistant Medical; Admitting Provider Nurse Practitioner Acute Care; Emergency Provider Emergency Medicine; PCP Hospitalist; Visit Provider Nurse Practitioner Acute Care
DX: I95.9 Hypotension, unspecified (principal); N17.9 Acute kidney failure, unspecified; E86.0 Dehydration; F25.9 Schizoaffective disorder, unspecified; W18.2XXA Fall in (into) shower or empty bathtub, initial encounter; Z20.822 Contact with and (suspected) exposure to COVID-19; Z79.899 Other long term (current) drug therapy
CPT/HCPCS: 36415; 70450; 71045; 71275; 72125; 80048; 80053; 82803; 83735; 83880; 85025; 87637; 99285; J0360; J1644; J7120; Q9967

== ENCOUNTER → 2025-03-11 09:16 | Outpatient (BNV) | payer OTHER, SELFPAY | PROVIDERS: PCP Hospitalist; Visit Provider Radiology Vascular & Interventional Radiology | DX: J98.11 Atelectasis (principal); M50.30 Other cervical disc degeneration, unspecified cervical region; S09.90XA Unspecified injury of head, initial encounter; R06.00 Dyspnea, unspecified | CPT/HCPCS: 70450; 71045; 71275; 72125 ==

== ENCOUNTER → 2025-03-11 14:31 | Outpatient (BNV) | payer OTHER, SELFPAY | PROVIDERS: Admitting Provider Nurse Practitioner Acute Care; Emergency Provider Emergency Medicine; PCP Hospitalist; Visit Provider Nurse Practitioner Acute Care | DX: N17.9 Acute kidney failure, unspecified (principal) | CPT/HCPCS: 99223 ==

== ENCOUNTER 2025-04-21 12:40 | Emergency (ER) | payer MEDICARE, SELFPAY ==
[2025-04-21] VITALS (8 sets, daily range): BP systolic 129–195; BP diastolic 56–86; PULSE 77–94; RESP 14–20; TEMP 36.6–37.4; O2SAT 95–99; BMI 26.4
--- NOTE | ~2025-04-21 | CT_ITS ---
CLINICAL HISTORY: fall, elderly CT head without contrast. COMPARISON: CT head dated 03/11/25 at 10:22 EDT FINDINGS: The visualized paranasal sinuses are clear. The mastoid air cells are clear. No calvarial fracture. No evidence for mass or mass effect. No intracranial hemorrhage or abnormal extra-axial fluid collection. No CT evidence of acute infarct. Chronic lacunar infarct present within the right basal ganglia. The ventricles are proportional with the degree of mild global cerebral volume loss without evidence of hydrocephalus. Basilar cisterns are patent. There are periventricular areas of low attenuation compatible with mild white matter small vessel disease. Posterior fossa appears unremarkable. IMPRESSION: 1. No acute intracranial findings. This document has been electronically signed by: Shashi Garsia MD on 04/21/2025 17:50:11
--- NOTE | ~2025-04-21 | CT_ITS ---
CLINICAL HISTORY: fall, elderly CT cervical spine without contrast. COMPARISON: CT cervical spine dated 03/11/25 at 10:22 EDT FINDINGS: Straightening of the normal cervical lordosis, likely positional. Mild rightward curvature of the lower cervical spine. Vertebral body heights are maintained. No evidence of acute vertebral body injury. Skull base and intracranial structures appear normal. Calcified plaque present at the carotid bulbs bilaterally. C2-C3: Anterior marginal osteophytes. Facet joint arthrosis. C3-C4: Anterior marginal osteophytes. Facet joint arthrosis. C4-C5: Anterior marginal osteophytes. Facet joint arthrosis. C5-C6: Anterior marginal osteophytes. Facet joint arthrosis. C6-C7: Facet joint arthrosis. IMPRESSION: 1. No evidence of acute injury to the cervical spine. This document has been electronically signed by: Shashi Garsia MD on 04/21/2025 17:44:20
[2025-04-21 14:04] LABS: MANUAL DIFF FLAG NO
[2025-04-21 14:07] LABS: Hematocrit 38.7 % (37.0-47.0); Hemoglobin 12.5 g/dl (12.0-16.0); Imm Gran Abs Auto 0.04 X10*3/uL (0.00-0.03); Imm Gran Pct Auto 0.5 % (0.0-0.4); Lymphocytes Absolute Auto 1.4 X10*3/uL (1.2-4.9); Mean Corpuscular HGB Conc 32.3 g/dl (31.0-35.0); Mean Corpuscular Hemoglobin 28.0 pg (27.0-33.0); Mean Corpuscular Volume 86.6 fL (80.0-98.0); NRBC Abs Auto 0.000 X10*3/uL (0.0-0.012); NRBC Pct Auto 0.0 /100WBC (0.0-0.2); Platelet Count 290 X10*3/uL (160-400); Red Blood Count 4.47 X10*6/uL (4.20-5.50); White Blood Count 8.7 X10*3/uL (4.8-10.8)
[2025-04-21 14:20] LABS: Alanine Aminotransferase 15 U/L (0-31); Albumin Level 3.8 g/dL (3.5-5.0); Alkaline Phosphatase 89 U/L (39-117); Anion Gap 13 (12-20); Aspartate Amino Transferase 30 U/L (5-31); Blood Urea Nitrogen 21 mg/dL (9-16); Calcium 9.2 mg/dL (8.4-10.2); Carbon Dioxide 27 mmol/L (22-29); Chloride 109 mmol/L (96-108); Creatinine Clr Calc Pharmacy 37.4; Estimated Glomerular Filt Rate 39; Potassium 3.5 mmol/L (3.3-5.1); Sodium 145 mmol/L (135-145); Total Protein 6.4 g/dL (6.5-8.0)
--- OUTSIDE RECORDS SUMMARY | 2025-04-21 14:48 | XMS_ITS | Encounter Summary ---
Author Organization [facility] [place] Address [address] [place] [address] Care Team Providers Care Wood Heel Cementer Name Role Phone Delfino Chaudhari MD Primary Care Provider [phone] Encounter Details Date Type Department Care Team (Late st Contact Info) Description 03/22/[address] [facility] - Main Lab 299 [facility] [place] [address] Delfino Chaudhari MD [address] [place] [address] [address] [place] ID Personal history of other diseases of urinary system Social History Tobacco Use Types Packs/Day Years Used Date Smoking Tobacco: Never Assessed Comments Unknown Sex and Gender Information Value Date Recorded Sex Assigned at Not on file Legal Sex Female 3:40 PM EDT Gender Identity Not on file Sexual Orientation Not on file documented as of this encounter Plan of Treatment Pending Results Name Type Priority Associated Diagnoses Date /Time Fuchs urine culture tube Lab Routine Personal history of other diseases of urinary system 03/22/2025 12:00 AM EDT documented as of this encounter Procedures Procedure Name Priority Date/Time Associated Diagnosis Comments URINALYSIS WITH REFLEX MICROSCOPIC Routine 03/22/2025 12:00 AM EDT Personal history of other diseases of urinary system URINALYSIS WITH REFLEX MICROSCOPIC Routine 03/22/2025 12:00 AM EDT Personal history of other diseases of urinary system CULTURE URINE Routine 03/22/2025 12:00 AM EDT Personal history of other diseases of urinary system documented in this encounter Results * (ABNORMAL) Culture urine (03/22/2025 12:00 AM EDT) Culture, Urine 10,000-49,000 CFU/mL Escherichia coli(A) DOUG 03/26/2025 11:[address] [facility] Comment: This is an edited result. Previous organism was Gram negative bacilli on 03/25/2025 at 0756 EDT. Urine Urine specimen obtained by clean catch procedure / Unknown 03/22/2025 03/24/2025 9:24 AM EDT Narrative Organism Antibiotic Method Susceptibility Escherichia coli Amoxicillin/Clavulanate DOUG 4 ug/ml: Susceptible Escherichia coli Ampicillin/Sulbactam DOUG 4 ug/ml: Susceptible Escherichia coli Piperacillin/Tazobactam DOUG <=4 ug/ml: Susceptible Escherichia coli Cefazolin (Urine) DOUG 2 ug/ml: Susceptible Escherichia coli Cefoxitin DOUG <=4 ug/ml: Susceptible Escherichia coli Ceftazidime DOUG <=0.5 ug/ml: Susceptible Escherichia coli Ceftriaxone DOUG <=0.25 ug/ml: Susceptible Escherichia coli Cefepime DOUG <=0.12 ug/ml: Susceptible Escherichia coli Meropenem DOUG <=0.25 ug/ml: Susceptible Escherichia coli Amikacin DOUG 2 ug/ml: Susceptible Escherichia coli Gentamicin DOUG <=1 ug/ml: Susceptible Escherichia coli Ciprofloxacin DOUG <=0.06 ug/ml: Susceptible Escherichia coli Levofloxacin DOUG <=0.12 ug/ml: Susceptible Escherichia coli Nitrofurantoin DOUG <=16 ug/ml: Susceptible Escherichia coli Trimethoprim/Sulfamethoxazole DOUG <=20 ug/ml: Susceptible us Delfino Chaudhari MD LAB MICROBIOLOGY - GENERAL ORDER ADRIANA Final Result [facility] [address] [place] [address], * (ABNORMAL) Urinalysis with reflex microscopic (03/22/2025 12:00 AM EDT) Specific [place] Urine 1.023 1.003 - 1.030 LAB URINALYSIS - AUTOMATED METHOD 03/22/2025 6:[address] [facility] pH, Urine 6.5 5.0 - 8.0 pH LAB URINALYSIS - AUTOMATED METHOD 03/22/2025 6:[address] [facility] Leukocytes, Urine Moderate(A) Negative LAB URINALYSIS - AUTOMATED METHOD 03/22/2025 6:01 PM [facility] Nitrite, Urine Negative Negative LAB URINALYSIS - AUTOMATED METHOD 03/22/2025 6:01 PM [facility] Protein, Urine Trace <=Trace mg/dL LAB URINALYSIS - AUTOMATED METHOD 03/22/2025 6:01 PM [facility] Glucose, Urine Negative Negative mg/dL LAB URINALYSIS - AUTOMATED METHOD 03/22/2025 6:01 PM [facility] Ketones, Urine Trace(A) Negative mg/dL LAB URINALYSIS - AUTOMATED METHOD 03/22/2025 6:01 PM [facility] Urobilinogen , Urine 1.0 0.2 - 1.0 mg/dL LAB URINALYSIS - AUTOMATED METHOD 03/22/2025 6:01 PM [facility] Bilirubin, Urine Negative Negative LAB URINALYSIS - AUTOMATED METHOD 03/22/2025 6:01 PM [facility] Blood, Urine Negative Negative LAB URINALYSIS - AUTOMATED METHOD 03/22/2025 6:01 PM [facility] RBC, Urine 3.8 0 - 4 /HPF LAB URINALYSIS - AUTOMATED METHOD 03/22/2025 6:01 PM [facility] WBC, Urine 66.6(H) 0 - 4 /HPF LAB URINALYSIS - AUTOMATED METHOD 03/22/2025 6:01 PM [facility] Squamous Epithelial, Urine 21 0 - 60 /LPF LAB URINALYSIS - AUTOMATED METHOD 03/22/2025 6:01 PM [facility] Bacteria, Urine Negative Negative /HPF LAB URINALYSIS - AUTOMATED METHOD 03/22/2025 6:01 PM [facility] Hyaline Casts, Urine 3.6(H) 0 - 3 /LPF LAB URINALYSIS - AUTOMATED METHOD 03/22/2025 6:[address] [facility] Urine Urine specimen obtained by clean catch procedure / Unknown 03/22/2025 03/22/2025 4:58 PM EDT us Delfino Chaudhari MD LAB URINE ORDERABLES Final Resul t [facility] [address] [place] [address], documented in this encounter Visit Diagnoses Diagnosis Personal history of other diseases of urinary system documented in this encounter Care Teams Wood Heel Cementer Relationship Specialty Start Date End Date Delfino Chaudhari MD [address] [place] [address] Dr [address] [place] ID PCP - General Internal Medicine 06/07/24 documented as of this encounter
--- OUTSIDE RECORDS SUMMARY | 2025-04-21 14:48 | XMS_ITS | Encounter Summary ---
[facility] Address [address] [place] [address] Care Team Providers Care Life Coach Name Role Phone Delfino Chaudhari MD Primary Care Provider [phone] Encounter Details Date Type Department Care Team (Late st Contact Info) Description 12/31/2024 Lab Requisition [facility] - Main Lab 299 [facility] [place] [address] Delfino Chaudhari MD [address] [place] [address] [address] [place] Type 2 diabetes mellitus without complications (CMS/HCC V24, CMS/HCC V28) Social History Tobacco Use Types Packs/Day Years [...] Procedure Name Priority Date/Time Associated Diagnosis Comments HEMOGLOBIN A1C Routine 12/31/2024 6:59 AM EDT Type 2 diabetes mellitus without complications (CMS/HCC V24, CMS/HCC V28) documented in this encounter Results * Hemoglobin A1c (12/31/2024 6:59 AM EDT) Hemoglobin A1C 6.1 <6.5 % LAB CHEMISTRY METHOD 01/01/2025 11:24 AM EDT [facility] Mean Bld Glu Estim. 128 mg/dL LAB CHEMISTRY METHOD 01/01/2025 11:24 AM EDT [facility] Blood Venous blood specimen / Unknown 12/31/2024 6:59 AM EDT 12/31/2024 8:00 AM EDT us Delfino Chaudhari MD LAB BLOOD ORDERABLES Final Resul t [facility] ([facility] [address] [place] [address], documented in this encounter Visit Diagnoses Diagnosis Type 2 diabetes mellitus without complications (CMS/HCC V24, CMS/HCC V28) documented in this encounter Care Teams Life Coach Relationship Specialty Start Date End Date Delfino Chaudhari MD [address] [place] [address] Dr [address] [place], [place] PCP - General Internal Medicine 06/07/24 documented as of this encounter
--- OUTSIDE RECORDS SUMMARY | 2025-04-21 14:48 | XMS_ITS | Encounter Summary ---
Author Organization [employer] [facility] Address [address] [place] [address] Care Team Providers Care Manufacturing Teacher Name Role Phone Delfino Chaudhari MD Primary Care Provider [phone] Encounter Details Date Type Department Care Team (Late st Contact Info) Description 03/08/[address] [facility] - Main Lab 299 [facility] [place] [place] [address] Delfino Chaudhari MD [address] [place] [address] [address] [place] Other middle or intermediate school principal (current) drug therapy; Encounter for other specified [...] LDL Routine 03/08/2025 6:58 AM EDT Other middle or intermediate school principal (current) drug therapy Encounter for other specified special examinations Other hyperlipidemia CBC WITH AUTO DIFFERENTIAL Routine 03/08/2025 6:58 AM EDT Other shelter (current) drug therapy Encounter for other specified special examinations Other hyperlipidemia CBC AND DIFFERENTIAL Routine 03/08/2025 6:58 AM EDT Other shelter (current) drug therapy Encounter for other specified special examinations Other hyperlipidemia THYROID STIMULATING HORMONE Routine 03/08/2025 6:58 AM EDT Other shelter (current) drug therapy Encounter for other specified special examinations Other hyperlipidemia COMPREHENSIVE METABOLIC PANEL Routine 03/08/2025 6:58 AM EDT Other shelter (current) drug therapy Encounter for other specified [...] LAB HEMETOLOGY METHOD 03/08/2025 8:03 AM EDT [facility] Blood Venous blood specimen / Unknown 03/08/2025 6:58 AM EDT 03/08/2025 7:33 AM EDT us Delfino Chaudhari MD LAB BLOOD ORDERABLES Final Resul t Performing Organization Address City/[facility]/ZIP Co de Phone Number [facility] [address] [place] [address], [place] [phone] * Thyroid stimulating hormone (03/08/2025 6:58 AM EDT) [facility] TSH 1.57 0.40 - 4.00 mcIU/mL LAB CHEMISTRY METHOD 03/08/2025 11:24 AM EDT [facility] Blood Venous blood specimen / Unknown 03/08/2025 6:58 AM EDT 03/08/2025 7:33 AM EDT us Delfino Chaudhari MD LAB BLOOD ORDERABLES Final Resul t Performing Organization Address [facility] Co de Phone Number [facility] [address] [place] [address], [place] [phone] * Lipid panel with reflex to direct LDL (03/08/2025 6:58 AM EDT) [facility] Cholesterol 163 0 - 200 mg/dL LAB CHEMISTRY METHOD 03/08/2025 8:21 AM EDT [facility] Triglycerides 59 0 - 150 mg/dL LAB CHEMISTRY METHOD 03/08/2025 8:21 AM EDT [facility] HDL 71 >=40 mg/dL LAB CHEMISTRY METHOD 03/08/2025 8:21 AM EDT [facility] LDL Calculated 80 0 - 100 mg/dL LAB CHEMISTRY METHOD 03/08/2025 8:21 AM EDT [facility] Comment:Estimated LDL Calcul ated using equation: Total cholesterol - HDL cholesterol - (Triglycerides/5) VLDL Cholesterol Anmol 11.8 mg/dL LAB CHEMISTRY METHOD 03/08/2025 8:21 AM T [facility] Non HDL Chol. (LDL+VLDL) 92 <145 mg/dL LAB CHEMISTRY METHOD 03/08/2025 8:21 AM [facility] Chol/HDL Ratio 2.3 0.0 - 4.4 LAB CHEMISTRY METHOD 03/08/2025 8:21 AM T [facility] Blood Venous blood specimen / Unknown 03/08/2025 6:58 AM EDT 03/08/2025 7:33 AM EDT us Delfino Chaudhari MD LAB BLOOD ORDERABLES Final Resul t [facility] [address] [place] [address], [place] [phone] * (ABNORMAL) Comprehensive metabolic panel (03/08/2025 6:58 [...] LAB BLOOD ORDERABLES Final Resul t [facility] [address] [place] [address], documented in this encounter Visit Diagnoses Diagnosis Other shelter (current) drug therapy Encounter for other specified special examinations Other hyperlipidemia documented in this encounter Care Teams Manufacturing Teacher Relationship Specialty Start Date End Date Delfino Chaudhari MD [address] [place], [place] PCP - General Internal Medicine 06/07/24 documented as of this encounter
--- OUTSIDE RECORDS SUMMARY | 2025-04-21 14:48 | XMS_ITS | Encounter Summary ---
Author Organization [facility] Address [address] [place] [address] Care Team Providers Care Electronic Assembler Group Leader Name Role Phone Delfino Chaudhari MD Primary Care Provider [phone] Encounter Details Date Type Department Care Team (Latest Contact Info) Description 09/08/2024 Lab Requisition [facility] - Main Lab [address] [facility] [place] [address] Delfino Chaudhari MD [address] [place] [address] Dr [address] [place] Schizoaffective disorder, unspecified (CMS/HCC V24, CMS/HCC V28) Social History Tobacco [...] PANEL WITH REFLEX TO DIRECT LDL Routine 09/08/2024 6:45 AM EST Schizoaffective disorder, unspecified (CMS/HCC) CBC WITH AUTO DIFFERENTIAL Routine 09/08/2024 6:45 AM EST Schizoaffective disorder, unspecified (CMS/HCC) CBC AND DIFFERENTIAL Routine 09/08/2024 6:45 AM EST Schizoaffective disorder, unspecified (CMS/HCC) THYROID STIMULATING HORMONE Routine 09/08/2024 6:45 AM EST Schizoaffective disorder, unspecified (CMS/HCC) COMPREHENSIVE METABOLIC PANEL Routine 09/08/2024 6:45 AM EST Schizoaffective disorder, unspecified (CMS/HCC) documented in this encounter Results * CBC auto differential (09/08/2024 6:45 AM EST) [facility] Signature WBC 5.5 4.8 - 10.8 K/mcL LAB HEMETOLOGY METHOD 09/08/2024 7:31 AM [facility] RBC 4.10 3.80 - 4.80 M/mcL LAB HEMETOLOGY METHOD 09/08/2024 7:31 AM [facility] Hemoglobin 11.6 11.5 - 16.0 g/dL LAB HEMETOLOGY METHOD 09/08/2024 7:31 AM [facility] Hematocrit 35.7 35.0 - 47.0 % LAB HEMETOLOGY METHOD 09/08/2024 7:31 AM [facility] MCV 87.3 79.0 - 98.0 FL LAB HEMETOLOGY METHOD 09/08/2024 7:31 AM [facility] MCH 28.4 27.0 - 32.0 pcg LAB HEMETOLOGY METHOD 09/08/2024 7:31 AM [facility] MCHC 32.5 32.0 - 37.0 g/dL LAB HEMETOLOGY METHOD 09/08/2024 7:31 AM [facility] RDW 13.2 11.0 - 15.0 % LAB HEMETOLOGY METHOD 09/08/2024 7:31 AM [facility] Platelets 234 130 - 400 K/mcL LAB HEMETOLOGY METHOD 09/08/2024 7:31 AM [facility] MPV 10.5 7.0 - 11.0 FL LAB HEMETOLOGY METHOD 09/08/2024 7:31 AM [facility] NRBC 0.0 <1.0 % LAB HEMETOLOGY METHOD 09/08/2024 7:31 AM [facility] NRBC Absolute 0.00 <0.10 K/mcL LAB HEMETOLOGY METHOD 09/08/2024 7:31 AM [facility] Neutrophils Relative 43.6 % LAB HEMETOLOGY METHOD 09/08/2024 7:31 AM [facility] Lymphocytes Relative 45.4 % LAB HEMETOLOGY METHOD 09/08/2024 7:31 AM [facility] Monocytes Relative 8.3 % LAB HEMETOLOGY METHOD 09/08/2024 7:31 AM [facility] Eosinophils Relative 1.6 % LAB HEMETOLOGY METHOD 09/08/2024 7:31 AM [facility] Basophils Relative 0.9 % LAB HEMETOLOGY METHOD 09/08/2024 7:31 AM [facility] Immature Granulocytes Relative 0.2 % LAB HEMETOLOGY METHOD 09/08/2024 7:31 AM [facility] Neutrophils Absolute 2.41 1.50 - 7.00 K/[facility] LAB HEMETOLOGY METHOD 09/08/2024 7:31 AM [facility] Lymphocytes Absolute 2.51 1.00 - 5.00 K/[facility] HEMETOLOGY METHOD 09/08/2024 7:31 AM [facility] Monocytes Absolute 0.46 0.20 - 1.00 K/mcL LAB HEMETOLOGY METHOD 09/08/2024 7:31 AM [facility] Eosinophils Absolute 0.09 0.00 - 0.50 K/[facility] HEMETOLOGY METHOD 09/08/2024 7:31 AM [facility] Basophils Absolute 0.05 0.00 - 0.20 K/[facility] HEMETOLOGY METHOD 09/08/2024 7:31 AM [facility] Immature Granulocytes Absolute 0.01 0.00 - 0.03 K/mcL LAB HEMETOLOGY METHOD 09/08/2024 7:31 AM [facility] Blood Venous blood specimen / Unknown 09/08/2024 6:45 AM EST 09/08/2024 7:24 AM EST us Delfino Chaudhari MD LAB BLOOD ORDERABLES Final Resul t Performing Organization Address [facility]/ZIP Co de Phone Number [facility] [address] [place] [address], [place] [phone] * Thyroid stimulating hormone (09/08/2024 6:45 AM EST) [facility] TSH 1.96 0.40 - 4.00 mcIU/mL LAB CHEMISTRY METHOD 09/08/2024 8:19 AM EST [facility] Blood Venous blood specimen / Unknown 09/08/2024 6:45 AM EST 09/08/2024 7:24 AM EST us Delfino Chaudhari MD LAB BLOOD ORDERABLES Final Resul t Performing Organization Address [facility] de Phone Number [facility] [address] [place] [address], [place] [phone] * (ABNORMAL) Lipid panel with reflex to direct LDL (09/08/2024 6:45 AM EST) [facility] Cholesterol 209(H) 0 - 200 mg/dL LAB CHEMISTRY METHOD 09/08/2024 7:57 AM [facility] Triglycerides 106 0 - 150 mg/dL LAB CHEMISTRY METHOD 09/08/2024 7:57 AM EST [facility] HDL 69 >=40 mg/dL LAB CHEMISTRY METHOD 09/08/2024 7:57 AM [facility] LDL Calculated 119(H) 0 - 100 mg/dL LAB CHEMISTRY METHOD 09/08/2024 7:57 AM [facility] VLDL Cholesterol Anoml 21.2 mg/dL LAB CHEMISTRY METHOD 09/08/2024 7:57 AM [facility] Non HDL Chol. (LDL+VLDL) 140 <145 mg/dL LAB CHEMISTRY METHOD 09/08/2024 7:57 AM [facility] Chol/HDL Ratio 3.0 0.0 - 4.4 LAB CHEMISTRY METHOD 09/08/2024 7:57 AM [facility] Blood Venous blood specimen / Unknown 09/08/2024 6:45 AM EST 09/08/2024 7:24 AM EST us Delfino Chaudhari MD LAB BLOOD ORDERABLES Final Resul t [facility] [address] [place] [address], [place] [phone] * (ABNORMAL) Comprehensive metabolic panel (09/08/2024 6:45 AM EST) Sodium 139 133 - 145 mmol/L LAB CHEMISTRY METHOD 09/08/2024 7:57 AM [facility] Potassium 4.0 3.5 - 5.5 mmol/L LAB CHEMISTRY METHOD 09/08/2024 7:57 AM [facility] Chloride 106 96 - 110 mmol/L LAB CHEMISTRY METHOD 09/08/2024 7:57 AM [facility] CO2 28 21 - 32 mmol/L LAB CHEMISTRY METHOD 09/08/2024 7:57 AM [facility] Anion Gap 5 3 - 11 LAB CHEMISTRY METHOD 09/08/2024 7:57 AM [facility] Glucose 86 70 - 100 mg/dL LAB CHEMISTRY METHOD 09/08/2024 7:57 AM [facility] BUN 30(H) 5 - 25 mg/dL LAB CHEMISTRY METHOD 09/08/2024 7:57 AM [facility] Creatinine 1.16(H) 0.50 - 1.10 mg/dL LAB CHEMISTRY METHOD 09/08/2024 7:57 AM [facility] eGFR 51(L) >=60 mL/min/1. 73m2 LAB CHEMISTRY METHOD 09/08/2024 7:57 AM [facility] Comment:Calculation based on the Chronic Kidney Disease Epidemiology Collaboration (CKD-EPI) equation refit without adjustment for race. BUN/Creatinine Ratio 25.9 LAB CHEMISTRY METHOD 09/08/2024 7:57 AM [facility] Calcium 9.1 8.5 - 10.5 mg/dL LAB CHEMISTRY METHOD 09/08/2024 7:57 AM [facility] AST (SGOT) 16 10 - 42 unit/L LAB CHEMISTRY METHOD 09/08/2024 7:57 AM [facility] ALT (SGPT) 12 10 - 60 unit/L LAB CHEMISTRY METHOD 09/08/2024 7:57 AM [facility] Alkaline Phosphatase 98 42 - 121 unit/L LAB CHEMISTRY METHOD 09/08/2024 7:57 AM [facility] Total Protein 5.9(L) 6.0 - 8.0 g/dL LAB CHEMISTRY METHOD 09/08/2024 7:57 AM [facility] Albumin 3.0(L) 3.2 - 5.0 g/dL LAB CHEMISTRY METHOD 09/08/2024 7:57 AM [facility] Total Bilirubin 0.4 0.0 - 1.4 mg/dL LAB CHEMISTRY METHOD 09/08/2024 7:57 AM [facility] Blood Venous blood specimen / Unknown 09/08/2024 6:45 AM EST 09/08/2024 7:24 AM EST us Delfino Chaudhari MD LAB BLOOD ORDERABLES Final Resul t [facility] [address] [place] [address], documented in this encounter Visit Diagnoses Diagnosis Schizoaffective disorder, unspecified (CMS/HCC V24, CMS/HCC V28) documented in this encounter Care Teams Electronic Assembler Group Leader Relationship Specialty Start Date End Date Delfino Chaudhari MD [address] [place] PCP - General Internal Medicine 06/07/24 documented as of this encounter
--- OUTSIDE RECORDS SUMMARY | 2025-04-21 14:48 | XMS_ITS | Encounter Summary ---
Author Organization [facility] Address [address] [place] [address] Care Team Providers Care Form Layer Name Role Phone Delfino Chaudhari MD Primary Care Provider [phone] Encounter Details Date Type Department Care Team (Latest Contact Info) Description 07/11/2024 Lab Requisition [facility] - Main Lab [address] [place] [address] Delfino Chaudhari MD [address] [place] [address] Dr [address] [place] Schizoaffective disorder, unspecified (CMS/HCC V24, CMS/HCC V28) [...] Date/Time Associated Diagnosis Comments HEMOGLOBIN A1C Routine 07/11/2024 6:34 AM EST Schizoaffective disorder, unspecified (CMS/HCC) documented in this encounter Results * Hemoglobin A1c (07/11/2024 6:34 AM EST) Hemoglobin A1C 6.0 <6.5 % LAB CHEMISTRY METHOD 07/11/2024 2:40 PM EST [facility] Mean Bld Glu Estim. 126 mg/dL LAB CHEMISTRY METHOD 07/11/2024 2:40 PM EST [facility] Blood Venous blood specimen / Unknown 07/11/2024 6:34 AM EST 07/11/2024 7:09 AM EST us Delfino Chaudhari MD LAB BLOOD ORDERABLES Final Resul t [facility] [address] [place] [address], documented in this encounter Visit Diagnoses Diagnosis Schizoaffective disorder, unspecified (CMS/HCC V24, CMS/HCC V28) documented in this encounter Care Teams Form Layer Relationship Specialty Start Date End Date Delfino Chaudhari MD [address] [place] [address] Dr [address] [place], [place] PCP - General Internal Medicine 06/07/24 documented as of this encounter
--- OUTSIDE RECORDS SUMMARY | 2025-04-21 14:48 | XMS_ITS | Encounter Summary ---
Author Organization [facility] Address [address] [place] [address] Care Team Providers Care Battery Wrecker Operator Name Role Phone Delfino Chaudhari MD Primary Care Provider [phone] Encounter Details Date Type Department Care Team (Latest Contact Info) Description 04/03/2025 Lab Requisition [facility] - Main Lab [address] [facility] [place] [address] Delfino Chaudhari MD [address] [place] [address] Dr [address] [place] Schizoaffective disorder, unspecified ([facility] V24, [facility] V28); Type 2 diabetes mellitus without complications ([facility] V24, [facility] V28) Social History Tobacco Use Types Packs/Day [...] Date/Time Associated Diagnosis Comments HEMOGLOBIN A1C Routine 04/03/2025 7:07 AM EDT Schizoaffective disorder, unspecified ([facility] V24, [facility] V28) Type 2 diabetes mellitus without complications ([facility] V24, CMS/[facility] V28) documented in this encounter Results * Hemoglobin A1c (04/03/2025 7:07 AM EDT) Hemoglobin A1C 6.0 <6.5 % LAB CHEMISTRY METHOD 04/03/2025 11:11 AM EDT [facility] Mean Bld Glu Estim. 126 mg/dL LAB CHEMISTRY METHOD 04/03/2025 11:11 AM T [facility] Blood Venous blood specimen / Unknown 04/03/2025 7:07 AM EDT 04/03/2025 8:09 AM EDT us Delfino Chaudhari MD LAB BLOOD ORDERABLES Final Resul t [facility] ([facility]) [facility] [address] [place] [address], documented in this encounter Visit Diagnoses Diagnosis Schizoaffective disorder, unspecified (CMS/[facility] V24, [facility] V28) Type 2 diabetes mellitus without complications ([facility] V24, [facility] V28) documented in this encounter Care Teams Battery Wrecker Operator Relationship Specialty Start Date End Date Delfino Chaudhari MD [address] [place] [address] Dr [address] [place], [place] PCP - General Internal Medicine 06/07/24 documented as of this encounter
--- OUTSIDE RECORDS SUMMARY | 2025-04-21 14:48 | XMS_ITS | Encounter Summary ---
Author Organization [facility] [address] Address [address] [place] [address] Care Team Providers Care Lead Front Desk Agent Name Role Phone Delfino Chaudhari MD Primary Care Provider [phone] Encounter Details Date Type Department Care Team (Latest Contact Info) Description 06/06/[address] [facility] - Main Lab [address] [place] [address] Delfino Chaudhari MD [address] [place] [address] Dr [address] [place] Schizoaffective disorder, unspecified (CMS/HCC V24, CMS/HCC V28) [...] Date/Time Associated Diagnosis Comments HEMOGLOBIN A1C Routine 06/06/2024 6:17 AM EST Schizoaffective disorder, unspecified (CMS/HCC) documented in this encounter Results * Hemoglobin A1c (06/06/2024 6:17 AM EST) Hemoglobin A1C 6.0 <6.5 % LAB CHEMISTRY METHOD 06/06/2024 1:02 PM EST [facility] Mean Bld Glu Estim. 126 mg/dL LAB CHEMISTRY METHOD 06/06/2024 1:02 PM EST [facility] Blood Venous blood specimen / Unknown 06/06/2024 6:17 AM EST 06/06/2024 7:02 AM EST us Delfino Chaudhari MD LAB BLOOD ORDERABLES Final Resul t [facility] [address] [place] [address], documented in this encounter Visit Diagnoses Diagnosis Schizoaffective disorder, unspecified (CMS/HCC V24, CMS/HCC V28) documented in this encounter Care Teams Lead Front Desk Agent Relationship Specialty Start Date End Date Delfino Chaudhari MD [address] [place] [address] Dr [address] [place], [place] PCP - General Internal Medicine 06/07/24 documented as of this encounter
--- OUTSIDE RECORDS SUMMARY | 2025-04-21 14:48 | XMS_ITS | Clinical Summary ---
Author Organization 299 [facility] Address [address] [place] [address] Phone Care Team Providers Care Blower Installer Name Role Phone Delfino Chaudhari MD Primary Care Provider [phone] Encounters Date Type Department Care Team Description 04/03/2025 Lab Requisition [facility] Lab [address] [place] [address] Delfino Chaudhari MD Schizoaffective disorder, unspecified ([facility] V24, [facility] V28); Type 2 diabetes mellitus without complications ([facility] V24, [facility] V28) 03/22/2025 Lab Requisition [facility] Lab [address] [place] [id number] Delfino Chaudhari MD Personal history of other diseases of urinary system 03/08/2025 Lab Requisition [facility] Lab [address] [place] [address] Delfino Chaudhari MD Other residential (current) drug therapy; Encounter for other specified special examinations; Other hyperlipidemia from Last 3 Months Social History Tobacco Use Types Packs/Day Years Used Date Smoking Tobacco: Never Assessed Comments Unknown Sex and Gender Information Value Date Recorded Sex Assigned at Not on file Legal Sex Female 3:40 PM EDT Gender Identity Not on file Sexual Orientation Not on file Plan of Treatment Health Maintenance Due Date Last Done Comments Breast Cancer Screening 1955 Diabetes: Annual Foot Exam 1966 Diabetes: Annual Retina Eye Exam 1966 DTaP,Tdap,and Td Vaccines (1 - Tdap) 1975 Pneumococcal Vaccine: 50+ Years (1 of 2 - PCV) 1975 Zoster Vaccines (1 of 2) 2006 Colorectal Cancer Screening: Colonoscopy 05/22/2024 Falls Risk Assessment 05/22/2024 Hepatitis C Screening 05/22/2024 Medicare Annual Wellness Visit 05/22/2024 Osteoporosis Screening (Bone Density Screening) 05/22/2024 Social Influencers of Health Screening 05/22/2024 Depression Screening 07/27/2024 COVID-19 Vaccine ( season) 2025 Influenza Vaccine (#1) 2025 Diabetes: Annual Urine Albumin-Creatinine Ratio (uACR) 04/17/2025 Diabetes: Blood Sugar Control Test (HGBA1C) 10/01/2025 04/03/2025, 12/31/2024, 09/30/2024, Additional history exists Diabetes: Annual GFR (Glomerular Filtration Rate) 03/08/2026 03/08/2025, 09/08/2024 Cholesterol Screening (Lipid Panel) 03/08/2030 03/08/2025, 09/08/2024 RSV Immunization Adult Patients (1 - 1-dose 75+ series) 2031 HIB Vaccines Aged Out No longer eligi ble based on patient's age to complete this topic HPV Vaccines Aged Out No longer eligi ble based on patient's age to complete this topic Hepatitis A Vaccines Aged Out No long er eligible based on patient's age to complete this topic Hepatitis B Vaccines Aged Out No long er eligible based on patient's age to complete this topic IPV Vaccines Aged Out No longer eligi ble based on patient's age to complete this topic MMR Vaccines Aged Out No longer eligi ble based on patient's age to complete this topic Meningococcal ACWY Vaccine Aged Out N o longer eligible based on patient's age to complete this topic Meningococcal B Vaccine Aged Out No l onger eligible based on patient's age to complete this topic RSV Immunization Patients Under 20 months Aged Out No longer eligible based on patient's age to complete this topic Varicella Vaccines Aged Out No longer eligible based on patient's age to complete this topic Procedures Procedure Name Priority Date/Time Associated Diagnosis Comments HEMOGLOBIN A1C Routine 04/03/2025 7:07 AM EDT Schizoaffective disorder, unspecified ([facility] V24, [facility] V28) Type 2 diabetes mellitus without complications ([facility] V24, [facility] V28) URINALYSIS WITH REFLEX MICROSCOPIC Routine 03/22/2025 12:00 AM EDT Personal history of other diseases of urinary system URINALYSIS WITH REFLEX MICROSCOPIC Routine 03/22/2025 12:00 AM EDT Personal history of other diseases of urinary system CULTURE URINE Routine 03/22/2025 12:00 AM EDT Personal history of other diseases of urinary system CBC WITH AUTO DIFFERENTIAL Routine 03/08/2025 6:58 AM EDT Other termite inspector (current) drug therapy Encounter for other specified special examinations Other hyperlipidemia THYROID STIMULATING HORMONE Routine 03/08/2025 6:58 AM EDT Other residential (current) drug therapy Encounter for other specified special examinations Other hyperlipidemia CBC AND DIFFERENTIAL Routine 03/08/2025 6:58 AM EDT Other residential (current) drug therapy Encounter for other specified special examinations Other hyperlipidemia LIPID PANEL WITH REFLEX TO DIRECT LDL Routine 03/08/2025 6:58 AM EDT Other termite inspector (current) drug therapy Encounter for other specified special examinations Other hyperlipidemia COMPREHENSIVE METABOLIC PANEL Routine 03/08/2025 6:58 AM EDT Other residential (current) drug therapy Encounter for other specified special examinations Other hyperlipidemia from Last 3 Months Results * Hemoglobin A1c (04/03/2025 7:07 AM EDT) Hemoglobin A1C 6.0 <6.5 % LAB CHEMISTRY METHOD 04/03/2025 11:11 AM EDT [facility] Mean Bld Glu Estim. 126 mg/dL LAB CHEMISTRY METHOD 04/03/2025 11:11 AM EDT [facility] Blood Venous blood specimen / Unknown 04/03/2025 7:07 AM EDT 04/03/2025 8:09 AM EDT us Delfino Chaudhari MD LAB BLOOD ORDERABLES Final Resul t [facility] [address] [place] [address], [place] [phone] * (ABNORMAL) Urinalysis with reflex microscopic (03/22/2025 12:00 AM EDT) Specific [place] Urine 1.023 1.003 - 1.030 LAB URINALYSIS - AUTOMATED METHOD 03/22/2025 6:01 PM [facility] pH, Urine 6.5 5.0 - 8.0 pH LAB URINALYSIS - AUTOMATED METHOD 03/22/2025 6:01 PM [facility] Leukocytes, Urine Moderate(A) Negative LAB URINALYSIS - AUTOMATED METHOD 03/22/2025 6:01 PM [facility] Nitrite, Urine Negative Negative LAB URINALYSIS - AUTOMATED METHOD 03/22/2025 6:01 PM [facility] Protein, Urine Trace <=Trace mg/dL LAB URINALYSIS - AUTOMATED METHOD 03/22/2025 6:01 PM [facility] Glucose, Urine Negative Negative mg/dL LAB URINALYSIS - AUTOMATED METHOD 03/22/2025 6:01 PM [facility] Ketones, Urine Trace(A) Negative mg/dL LAB URINALYSIS - AUTOMATED METHOD 03/22/2025 6:01 PM [facility] Urobilinogen , Urine 1.0 0.2 - 1.0 mg/dL LAB URINALYSIS - AUTOMATED METHOD 03/22/2025 6:01 PM [facility] Bilirubin, Urine Negative Negative LAB URINALYSIS - AUTOMATED METHOD 03/22/2025 6:01 PM [facility] Blood, Urine Negative Negative LAB URINALYSIS - AUTOMATED METHOD 03/22/2025 6:01 PM [facility] RBC, Urine 3.8 0 - 4 /HPF LAB URINALYSIS - AUTOMATED METHOD 03/22/2025 6:01 PM EDT [facility] WBC, Urine 66.6(H) 0 - 4 /HPF LAB URINALYSIS - AUTOMATED METHOD 03/22/2025 6:01 PM EDT [facility] Squamous Epithelial, Urine 21 0 - 60 /LPF LAB URINALYSIS - AUTOMATED METHOD 03/22/2025 6:01 PM EDT [facility] Bacteria, Urine Negative Negative /HPF LAB URINALYSIS - AUTOMATED METHOD 03/22/2025 6:01 PM EDT [facility] Hyaline Casts, Urine 3.6(H) 0 - 3 /LPF LAB URINALYSIS - AUTOMATED METHOD 03/22/2025 6:01 PM EDT [facility] Urine Urine specimen obtained by clean catch procedure / Unknown 03/22/2025 03/22/2025 4:58 PM EDT us Delfino Chaudhari MD LAB URINE ORDERABLES Final Resul t [facility] [address] [place] [address], * (ABNORMAL) Culture urine (03/22/2025 12:00 AM EDT) Culture, Urine 10,000-49,000 CFU/mL Escherichia coli(A) DOUG 03/26/2025 11:43 AM EDT [facility] Comment: This is an edited result. [...] Trimethoprim/Sulfamethoxazole DOUG <=20 ug/ml: Susceptible us Delfino Chuadhari MD LAB MICROBIOLOGY - GENERAL ORDER ADRIANA Final Result [facility] [address] [place] [address], [place] [phone] * Lipid panel with reflex to direct LDL (03/08/2025 6:58 AM EDT) Cholesterol 163 0 - 200 mg/dL LAB CHEMISTRY METHOD 03/08/2025 8:21 AM [facility] Triglycerides 59 0 - 150 mg/dL LAB CHEMISTRY METHOD 03/08/2025 8:21 AM [facility] HDL 71 >=40 mg/dL LAB CHEMISTRY METHOD 03/08/2025 8:21 AM [facility] LDL Calculated 80 0 - 100 mg/dL LAB CHEMISTRY METHOD 03/08/2025 8:21 AM [facility] Comment:Estimated LDL Calcul ated using equation: Total cholesterol - HDL cholesterol - (Triglycerides/5) VLDL Cholesterol Anmol 11.8 mg/dL LAB CHEMISTRY METHOD 03/08/2025 8:21 AM [facility] Non HDL Chol. (LDL+VLDL) 92 <145 mg/dL LAB CHEMISTRY METHOD 03/08/2025 8:21 AM [facility] Chol/HDL Ratio 2.3 0.0 - 4.4 LAB CHEMISTRY METHOD 03/08/2025 8:21 AM EDT [facility] Blood Venous blood specimen / Unknown 03/08/2025 6:58 AM EDT 03/08/2025 7:33 AM EDT us Delfino Chaudhari MD LAB BLOOD ORDERABLES Final Resul t [facility] [address] [place] [address], * (ABNORMAL) CBC auto differential (03/08/2025 6:58 AM EDT) WBC 5.7 4.8 - 10.8 K/mcL LAB HEMETOLOGY METHOD 03/08/2025 8:03 AM [facility] RBC 4.40 3.80 - 4.80 [facility] LAB HEMETOLOGY METHOD 03/08/2025 8:03 AM [facility] Hemoglobin 12.1 11.5 - 16.0 g/dL LAB HEMETOLOGY METHOD 03/08/2025 8:03 AM [facility] Hematocrit 38.1 35.0 - 47.0 % LAB HEMETOLOGY METHOD 03/08/2025 8:03 AM [facility] MCV 87.6 79.0 - 98.0 FL LAB HEMETOLOGY METHOD 03/08/2025 8:03 AM [facility] MCH 27.8 27.0 - 32.0 pcg LAB HEMETOLOGY METHOD 03/08/2025 8:03 AM [facility] MCHC 31.8(L) 32.0 - 37.0 g/dL LAB HEMETOLOGY METHOD 03/08/2025 8:03 AM [facility] RDW 12.8 11.0 - 15.0 % LAB HEMETOLOGY METHOD 03/08/2025 8:03 AM [facility] Platelets 241 130 - 400 K/mcL LAB HEMETOLOGY METHOD 03/08/2025 8:03 AM [facility] MPV 10.6 7.0 - 11.0 FL LAB HEMETOLOGY METHOD 03/08/2025 8:03 AM [facility] NRBC 0.0 <1.0 % LAB HEMETOLOGY METHOD 03/08/2025 8:03 AM [facility] NRBC Absolute 0.00 <0.10 K/mcL LAB HEMETOLOGY METHOD 03/08/2025 8:03 AM [facility] Neutrophils Relative 51.6 % LAB HEMETOLOGY METHOD 03/08/2025 8:03 AM [facility] Lymphocytes Relative 38.6 % LAB HEMETOLOGY METHOD 03/08/2025 8:03 AM [facility] Monocytes Relative 7.2 % LAB HEMETOLOGY METHOD 03/08/2025 8:03 AM [facility] Eosinophils Relative 1.4 % LAB HEMETOLOGY METHOD 03/08/2025 8:03 AM [facility] Basophils Relative 0.9 % LAB HEMETOLOGY METHOD 03/08/2025 8:03 AM [facility] Immature Granulocytes Relative 0.3 % LAB HEMETOLOGY METHOD 03/08/2025 8:03 AM [facility] Neutrophils Absolute 2.96 1.50 - 7.00 K/mcL LAB HEMETOLOGY METHOD 03/08/2025 8:03 AM [facility] Lymphocytes Absolute 2.21 1.00 - 5.00 K/mcL LAB HEMETOLOGY METHOD 03/08/2025 8:03 AM [facility] Monocytes Absolute 0.41 0.20 - 1.00 K/mcL LAB HEMETOLOGY METHOD 03/08/2025 8:03 AM EDT [facility] Eosinophils Absolute 0.08 0.00 - 0.50 [facility] LAB HEMETOLOGY METHOD 03/08/2025 8:03 AM EDT [facility] Basophils Absolute 0.05 0.00 - 0.20 K/mcL LAB HEMETOLOGY METHOD 03/08/2025 8:03 AM EDT [facility] Immature Granulocytes Absolute 0.02 0.00 - 0.03 [facility] LAB HEMETOLOGY METHOD 03/08/2025 8:03 AM EDT [facility] Blood Venous blood specimen / Unknown 03/08/2025 6:58 AM EDT 03/08/2025 7:33 AM EDT us Delfino Chaudhari MD LAB BLOOD ORDERABLES Final Resul t Performing Organization Address City/[facility]/ZIP Co de Phone Number [facility] [address] [place] [address], [place] [phone] * Thyroid stimulating hormone (03/08/2025 6:58 AM EDT) Pathologist [facility] TSH 1.57 0.40 - 4.00 mcIU/mL LAB CHEMISTRY METHOD 03/08/2025 11:24 AM EDT [facility] Blood Venous blood specimen / Unknown 03/08/2025 6:58 AM EDT 03/08/2025 7:33 AM EDT us Delfino Chaudhari MD LAB BLOOD ORDERABLES Final Resul t [facility] [address] [place] [address], [place] [phone] * (ABNORMAL) Comprehensive metabolic panel (03/08/2025 6:58 AM EDT) Sodium 141 133 - 145 mmol/L LAB CHEMISTRY METHOD 03/08/2025 8:21 AM [facility] Potassium 3.8 3.5 - 5.5 mmol/L LAB CHEMISTRY METHOD 03/08/2025 8:21 AM [facility] Chloride 109 96 - 110 mmol/L LAB CHEMISTRY METHOD 03/08/2025 8:21 AM [facility] CO2 25 21 - 32 mmol/L LAB CHEMISTRY METHOD 03/08/2025 8:21 AM [facility] Anion Gap 7 3 - 11 LAB CHEMISTRY METHOD 03/08/2025 8:21 AM [facility] Glucose 86 70 - 100 mg/dL LAB CHEMISTRY METHOD 03/08/2025 8:21 AM [facility] BUN 23 5 - 25 mg/dL LAB CHEMISTRY METHOD 03/08/2025 8:21 AM [facility] Creatinine 1.12(H) 0.50 - 1.10 mg/dL LAB CHEMISTRY METHOD 03/08/2025 8:21 AM [facility] eGFR 54(L) >=60 mL/min/1. 73m2 LAB CHEMISTRY METHOD 03/08/2025 8:21 AM [facility] Comment:Calculation based on the Chronic Kidney Disease Epidemiology Collaboration (CKD-EPI) equation refit without adjustment for race. BUN/Creatinine Ratio 20.5 LAB CHEMISTRY METHOD 03/08/2025 8:21 AM [facility] Calcium 8.6 8.5 - 10.5 mg/dL LAB CHEMISTRY METHOD 03/08/2025 8:21 AM [facility] AST (SGOT) 18 10 - 42 unit/L LAB CHEMISTRY METHOD 03/08/2025 8:21 AM [facility] ALT (SGPT) 13 10 - 60 unit/L LAB CHEMISTRY METHOD 03/08/2025 8:21 AM [facility] Alkaline Phosphatase 102 42 - 121 unit/L LAB CHEMISTRY METHOD 03/08/2025 8:21 AM EDT [facility] Total Protein 6.0 6.0 - 8.0 g/dL LAB CHEMISTRY METHOD 03/08/2025 8:21 AM EDT [facility] Albumin 3.1(L) 3.2 - 5.0 g/dL LAB CHEMISTRY METHOD 03/08/2025 8:21 AM EDT [facility] Total Bilirubin 0.3 0.0 - 1.4 mg/dL LAB CHEMISTRY METHOD 03/08/2025 8:21 AM EDT [facility] Blood Venous blood specimen / Unknown 03/08/2025 6:58 AM EDT 03/08/2025 7:33 AM EDT us Delfino Chaudhari MD LAB BLOOD ORDERABLES Final Resul t [facility] [address] [place] [address], from Last 3 Months Insurance MEDICARE MEDICAID - [place] Care Teams Blower Installer Relationship Specialty Start Date End Date Delfino Chaudhari MD [address] [place] [address] [address] [place] PCP - General Internal Medicine 06/07/24
--- OUTSIDE RECORDS SUMMARY | 2025-04-21 14:48 | XMS_ITS | Encounter Summary ---
Author Organization [facility] Address [address] [place] [address] Care Team Providers Care Machine Whitener Name Role Phone Delfino Chaudhari MD Primary Care Provider [phone] Encounter Details Date Type Department Care Team (Latest Contact Info) Description 08/01/2024 Lab Requisition [facility] - Main Lab [address] [place] [address] Delfino Chaudhari MD [address] [place] [address] [address] [place] Schizoaffective disorder, unspecified (CMS/HCC V24, CMS/HCC V28) [...] Date/Time Associated Diagnosis Comments HEMOGLOBIN A1C Routine 08/01/2024 6:40 AM EST Schizoaffective disorder, unspecified (CMS/HCC) documented in this encounter Results * Hemoglobin A1c (08/01/2024 6:40 AM EST) Hemoglobin A1C 6.0 <6.5 % LAB CHEMISTRY METHOD 08/01/2024 10:22 AM EST [facility] Mean Bld Glu Estim. 126 mg/dL LAB CHEMISTRY METHOD 08/01/2024 10:22 AM EST [facility] Blood Venous blood specimen / Unknown 08/01/2024 6:40 AM EST 08/01/2024 7:47 AM EST us Delfino Chaudhari MD LAB BLOOD ORDERABLES Final Resul t [facility] [address] [place] [address], documented in this encounter Visit Diagnoses Diagnosis Schizoaffective disorder, unspecified (CMS/HCC V24, CMS/HCC V28) documented in this encounter Care Teams Machine Whitener Relationship Specialty Start Date End Date Delfino Chaudhari MD [address] [place] [address] Dr [address] [place], [place] PCP - General Internal Medicine 06/07/24 documented as of this encounter
--- OUTSIDE RECORDS SUMMARY | 2025-04-21 14:48 | XMS_ITS | Encounter Summary ---
Author Organization [facility] Address [address] [place] [address] Care Team Providers Care Junior Network Administrator Name Role Phone Delfino Chaudhari MD Primary Care Provider [phone] Encounter Details Date Type Department Care Team (Latest Contact Info) Description 09/30/2024 Lab Requisition [facility] - Main Lab [address] [facility] [place] [address] Delfino Chaudhari MD [address] [place] [address] [address] [place] Schizoaffective disorder, unspecified (CMS/HCC V24, CMS/HCC V28) [...] Date/Time Associated Diagnosis Comments HEMOGLOBIN A1C Routine 09/30/2024 6:45 AM EST Schizoaffective disorder, unspecified (CMS/HCC) documented in this encounter Results * Hemoglobin A1c (09/30/2024 6:45 AM EST) Hemoglobin A1C 6.1 <6.5 % LAB CHEMISTRY METHOD 09/30/2024 10:52 AM EST [facility] Mean Bld Glu Estim. 128 mg/dL LAB CHEMISTRY METHOD 09/30/2024 10:52 AM EST [facility] Blood Venous blood specimen / Unknown 09/30/2024 6:45 AM EST 09/30/2024 8:14 AM EST us Delfino Chaudhari MD LAB BLOOD ORDERABLES Final Resul t [facility] [address] [place] [address], documented in this encounter Visit Diagnoses Diagnosis Schizoaffective disorder, unspecified (CMS/HCC V24, CMS/HCC V28) documented in this encounter Care Teams Junior Network Administrator Relationship Specialty Start Date End Date Delfino Chaudhari MD [address] [place] [address] Dr [address] [place], [place] PCP - General Internal Medicine 06/07/24 documented as of this encounter
--- NOTE | 2025-04-21 16:12 | ED.FALL ---
HPI - Fall General Chief Complaint: Fall Stated Complaint: wit fall, headstrike, +jhoanne Time Seen by Provider: 04/21/25 16:01 Source: EMS Mode of arrival: EMS Limitations: no limitations History of Present Illness ED Provider: HPI Narrative: 70-year-old woman, [facility], she was a witnessed fall with head strike from standing, EMS was called and she was placed in the cervical collar, patient is slow to answer but she knows she is in the hospital and she knows that she fell, EMS reported that per facility staff her mentation is at baseline and she did not have any other concerns. There was no reports of syncope, she is not on blood thinners. Related Data Home Medications ?Medication ?Instructions ?Recorded ?Confirmed acetaminophen 325 mg tablet 650 mg PO Q6H PRN PAIN/TEMP>101 03/11/25 03/11/25 atorvastatin 40 mg tablet 40 mg PO BEDTIME 03/11/25 03/11/25 benztropine 1 mg tablet 1 mg PO BID 03/11/25 03/11/25 bisacodyl 10 mg rectal suppository 10 mg OH DAILY PRN CONSTIPATION IF 03/11/25 03/11/25 SENNA INEFFECTIVE diazepam 2 mg tablet 1 mg PO BID 03/11/25 03/11/25 gabapentin 300 mg capsule 900 mg PO BEDTIME 03/11/25 03/11/25 glucagon 1 mg solution for 1 mg IM Q15M PRN Hypoglycemia 03/11/25 03/11/25 injection haloperidol 2 mg tablet 2 mg PO BID 03/11/25 03/11/25 hydrochlorothiazide 12.5 mg tablet 12.5 mg PO DAILY 03/11/25 03/11/25 ketoconazole 2 % shampoo 1 appl topical TUTHSA 03/11/25 03/11/25 lamotrigine 200 mg tablet 200 mg PO DAILY 03/11/25 03/11/25 (Lamictal) mirtazapine 30 mg disintegrating 30 mg PO BEDTIME 03/11/25 03/11/25 tablet (Remeron SolTab) pimavanserin 34 mg capsule 34 mg PO DAILY 03/11/25 03/11/25 (Nuplazid) risperidone 3 mg tablet (Risperdal) 3 mg PO DAILY 03/11/25 03/11/25 risperidone 3 mg tablet (Risperdal) 6 mg PO BEDTIME 03/11/25 03/11/25 sennosides 8.6 mg tablet (senna) 8.6 mg PO DAILY PRN Constipation 03/11/25 03/11/25 sodium phosphates 19 gram-7 118 ml OH DAILY PRN CONSTIPATION 03/11/25 03/11/25 gram/118 mL enema (Fleet Enema) IF BISACODYL INEFFECTIVE Allergies Allergy/AdvReac Type Severity Reaction Status Date / Time aspirin Allergy Unknown Verified 04/21/25 12:51 chlorpromazine Allergy Unknown Verified 04/21/25 12:51 diclofenac Allergy Unknown Verified 04/21/25 12:51 duloxetine Allergy Unknown Verified 04/21/25 12:51 pregabalin (From Lyrica) Allergy Unknown Verified 04/21/25 12:51 thioridazine Allergy Unknown Verified 04/21/25 12:51 tolterodine Allergy Unknown Verified 04/21/25 12:51 tramadol Allergy Unknown Verified 04/21/25 12:51 tuberculin,PPD,multi-puncture Allergy Unknown Verified 04/21/25 12:51 Review of Systems Constitutional: Constitutional: Reports as per [facility] Social History Social History Patient Tobacco Use Status: Never used Tobacco Advance Directives: No Advance Directives Information Provided: Yes Physical Exam Vital Signs: Vital Signs: Last Vital Signs Temp 98.4 F 04/21/25 20:04 Pulse 87 04/21/25 20:04 Resp 16 04/21/25 20:04 BP 195/81 H 04/21/25 20:04 Pulse Ox 97 04/21/25 20:04 O2 Del Method Room Air 04/21/25 20:04 BMI result Body Mass Index 26.4 Const: Other: Gen: ?Elderly woman, appears somewhat older than stated age HEENT: Poor dentition, no oropharyngeal trauma noted Neck: Cervical collar removed it was too tight and patient was having significant discomfort, she did not have any midline tenderness CV: S1-S2 radial pulses +2 Resp: ?No wheezing rales rhonchi no stridor moving air well Abd: ?Nondistended, no bruising, bowel sounds present MSK: Full range of motion old hips both knees both arms, pelvis is stable Skin: Slight swelling over the left forehead Neuro: ?Alert to self and location, was able to lift her arms and legs of the gurney, Medical Decision Making Medical Decision Making [facility] Narrative: Patient presented with nonsyncopal fall, there was no evidence for hip fractures, no upper extremity injury, she is somewhat slow in responding, she is on psych meds and reportedly this is her baseline, with negative workup anticipating discharge 8:06 PM 04/21/2025 (Dr. Konrad Arenas): On discharge blood pressure is elevated I will provide hydrochlorothiazide she is on 12.5 mg I will give 25 mg although until just now she has not been significantly hypertensive and she is otherwise asymptomatic Differential Diagnosis Differential Diagnoses: The differential diagnosis associated with the presentation includes (Syncope, nonsyncopal, head injury, neck injury) Admission/Observation Consideration of admission/observation: Escalation of care including admission/observation considered Lab Data [facility] Lab Attestation statement: I reviewed the patient's lab results. 04/21/25 13:59 04/21/25 13:59 Labs: Lab Results 04/21/25 Range/Units 13:59 WBC 8.7 (4.8-10.8) X10*3/uL RBC 4.47 (4.20-5.50) X10*6/uL Hgb 12.5 (12.0-16.0) g/dl Hct 38.7 (37.0-47.0) % MCV 86.6 (80.0-98.0) fL MCH 28.0 (27.0-33.0) pg MCHC 32.3 (31.0-35.0) g/dl RDW 12.9 (11.0-16.0) % Plt Count 290 D (160-400) X10*3/uL MPV 10.0 (9.4-12.3) fL Immature Gran % (Auto) 0.5 H (0.0-0.4) % Neut % (Auto) 75.2 H (45-73) % Lymph % (Auto) 16.2 L (20-40) % [place] % (Auto) 7.3 (2-11) % Eos % (Auto) 0.1 (0-4) % Baso % (Auto) 0.7 (0-2) % Lymph # (Auto) 1.4 (1.2-4.9) X10*3/uL [place] # (Auto) 0.6 (0.1-1.2) X10*3/uL Eos # (Auto) 0.0 (0.0-0.4) X10*3/uL Baso # (Auto) 0.1 (0.0-0.2) X10*3/uL Abs Immat Gran (auto) 0.04 H (0.00-0.03) X10*3/uL Absolute Neuts (auto) 6.6 (2.0-8.3) x10*3/uL Absolute Nucleated RBC 0.000 (0.0-0.012) X10*3/uL Nucleated RBC % (auto) 0.0 (0.0-0.2) /100WBC Sodium 145 (135-145) mmol/L Potassium 3.5 (3.3-5.1) mmol/L Chloride 109 H (96-108) mmol/L Carbon Dioxide 27 (22-29) mmol/L Anion Gap 13 (12-20) BUN 21 H (9-16) mg/dL Creatinine 1.36 (0.5-1.4) mg/dL Estim Creat Clear Calc 37.4 Estimated GFR 39 Random Glucose 124 H (60-115) mg/dL Calcium 9.2 (8.4-10.2) mg/dL Total Bilirubin 0.6 (0.0-1.0) mg/dL AST 30 (5-31) U/L ALT 15 (0-31) U/L Alkaline Phosphatase 89 (39-117) U/L Total Protein 6.4 L (6.5-8.0) g/dL Albumin 3.8 (3.5-5.0) g/dL Radiology Impression Discussion of test interpretation with radiology: I have reviewed the radiologist's reading. Independent Historian Clinical information obtained from an independent historian. History obtained from or confirmed by: EMS Discharge Plan Discharge Clinical Impression: Fall from standing Patient Disposition: Xfer [facility] Additional Instructions: Evaluated after a fall, had CT head and neck which has been unremarkable also had blood work which has been reassuring, her vital signs has been reassuring , resume her regular medication regimen without change Prescriptions: No Action acetaminophen 325 mg Tablet 650 mg PO Q6H PRN (Reason: PAIN/TEMP>101) atorvastatin 40 mg Tablet 40 mg PO BEDTIME benztropine 1 mg Tablet 1 mg PO BID bisacodyl 10 mg Suppository 10 mg OH DAILY PRN (Reason: CONSTIPATION IF SENNA INEFFECTIVE) diazepam 2 mg Tablet 1 mg PO BID Fleet Enema 19-7 gram/118 mL Enema 118 ml OH DAILY PRN (Reason: CONSTIPATION IF BISACODYL INEFFECTIVE) glucagon 1 mg Recon Soln 1 mg IM Q15M PRN (Reason: Hypoglycemia) Rx Instructions: MAY REPEAT X 1, IF INEFFECTIVE AFTER RE CHECK, MAX OF 2 DOSES ONLY haloperidol 2 mg Tablet 2 mg PO BID hydrochlorothiazide 12.5 mg Tablet 12.5 mg PO DAILY ketoconazole 2 % Shampoo 1 appl TOPICAL TUTHSA Rx Instructions: APPLY TO SCALP EVERY EVENING SHIFT TUTHSA APPLY TO SCALP, LATHER, AND LEAVE IN 5 TO 10 MIN THEN RINSE lamotrigine [Lamictal] 200 mg Tablet 200 mg PO DAILY gabapentin 300 mg Capsule 900 mg PO BEDTIME Nuplazid 34 mg Capsule 34 mg PO DAILY mirtazapine [Remeron SolTab] 30 mg Tablet,Disintegrating 30 mg PO BEDTIME sennosides [senna] 8.6 mg Tablet 8.6 mg PO DAILY PRN (Reason: Constipation) risperidone [Risperdal] 3 mg Tablet 6 mg PO BEDTIME risperidone [Risperdal] 3 mg Tablet 3 mg PO DAILY Print Language: Cook Islander
--- NOTE | 2025-04-21 19:25 | PC.NURSE ---
RN to RN report given to [facility] by phone. Awaiting EMS arrival, ETA 20-30 minutes from this time. [facility] Keily Goddard RN.
--- NOTE | 2025-04-21 20:13 | PC.NURSE ---
pt medicated per SEP with home BP medication. BP 201/82. MD gonzalez. gallito to d/c
== END 2025-04-21 20:15 | disposition skilled nursing facility (03) ==
PROVIDERS: Emergency Provider Emergency Medicine
DX: S09.90XA Unspecified injury of head, initial encounter (principal); W18.30XA Fall on same level, unspecified, initial encounter; Y93.9 Activity, unspecified; Y92.9 Unspecified place or not applicable; Y99.9 Unspecified external cause status
CPT/HCPCS: 36415; 70450; 72125; 80053; 85025; 99283; 99284

== ENCOUNTER → 2025-04-21 16:12 | Outpatient (BNV) | payer MEDICARE, SELFPAY | PROVIDERS: Emergency Provider Emergency Medicine; Visit Provider Radiology Diagnostic Radiology | DX: M25.78 Osteophyte, vertebrae (principal); S09.90XA Unspecified injury of head, initial encounter; W19.XXXA Unspecified fall, initial encounter | CPT/HCPCS: 70450; 72125 ==